=== PATIENT | female | born 1955 | race Caucasian/White ===

== ENCOUNTER 2017-03-05 11:47 | Inpatient (IN) ==
[2017-03-05] MEDS ORDERED: IOPAMIDOL 100 ML BOTTLE IJ ONE (11:48)
[2017-03-05] MEDS ORDERED: ONDANSETRON 4 MG/2 ML VIAL IV ONE (12:29)
[2017-03-05] MEDS ORDERED: 0.9 % SODIUM CHLORIDE 2,000 ML IV ONE (12:29)
[2017-03-05 13:38] LABS: Creatine Kinase 25 IU/L (24-170)
[2017-03-05 13:41] LABS: ALT/SGPT 9 U/l (0-40); Albumin 3.6 gm/dL (3.2-5.2); Albumin/Globulin Ratio 1.2 (1.0-2.3); Alkaline Phosphatase 82 U/L (39-117); Blood Urea Nitrogen 18 mg/dl (8-23); Magnesium 1.7 mg/dL (1.6-2.5); proBNP 268.7 pg/ml (0-125)
[2017-03-05] MEDS ORDERED: POTASSIUM CHLORIDE 20 MEQ in DEXTROSE 5% IN WATER 250 ML IV ONE (13:55)
--- NOTE | 2017-03-05 13:55 | Emergency Department Note ---
General Adult HPI - General Chief complaint: Weakness Stated complaint: Weakness Time Seen by Provider: 03/05/17 12:26 Source: patient, family, EMS Mode of arrival: wheelchair Limitations: no limitations - History of Present Illness HPI Narrative: 62-year-old female with a syncopal episode this morning when her tried to pick her up and help her to the bathroom. She was at her baseline confusion or slightly worse on arousal and the whole episode lasted less than a minute. She was unresponsive he tried to do some CPR, chest compressions and breaths. She gradually came around. When she passed out her eyes rolled back in her back and arms postured straight; however she did not lose control of her bowel or bladder nor did she have tremors or bite her tongue. She did stop breathing though. All that to say, it is not clear whether or not she had a seizure, passed out or actually underwent respiratory arrest Not getting much in the way of useful history and review of systems from her but her is here and gives me the story; also her primary care doctor, Dr. Mikal Meyer stop by gave me additional history. It sounds like she has been a gradual steady decline for unknown reasons over the last 6 months to year with belly pain nausea vomiting and unintentional weight loss. She is a former smoker and she has had a previous heart attack. Was scheduled for CT of the abdomen and pelvis today for above-noted reasons. No shortness of breath at this time - Related Data Home Medications Medication Instructions Recorded Confirmed Metoprolol Succinate [Toprol Xl] 100 mg PO BID 08/14/16 02/21/17 aspirin 81 mg tablet,delayed 81 mg PO QDAY 11/06/16 02/21/17 release furosemide 40 mg tablet 40 mg PO QDAY 11/06/16 02/21/17 potassium chloride ER 20 mEq 20 meq PO QDAY 11/06/16 02/21/17 tablet,extended release Previous Rx's Medication Instructions Recorded omeprazole 20 mg capsule,delayed 20 mg PO BID #180 cap 06/17/16 release Wheelchair 1 each MC CONT #1 each 08/16/16 meclizine 25 mg tablet 25 mg PO .Q HS PRN #30 tab 11/06/16 atorvastatin 80 mg tablet 80 mg PO QDAY 30 Days 12/03/16 escitalopram 10 mg tablet 10 mg PO QDAY #30 tab 02/21/17 Allergies Allergy/AdvReac Type Severity Reaction Status Date / Time Oxycodone AdvReac Vomiting Verified 03/05/17 11:53 Warfarin [From Coumadin] AdvReac nausea Verified 03/05/17 11:53 codeine sulfate Allergy Unknown Other Uncoded 02/21/17 15:24 Review of Systems All systems ED: reviewed and negative except as stated. Past Medical History - Past Medical History Attestation: Yes: The following information was validated with the patient. Medical history: Reports: coronary artery disease, hyperlipidemia, myocardial infarction, other (Barett's) Surgical history ED: Reports: , hip replacement, tonsillectomy, other ( cardiac cath, colonoscopy, left breast biopsy) - Social History smoking status: Former smoker Physical Exam Fatigued thin female no acute distress resting. Normocephalic atraumatic. Conjunctive are clear sclerae white and nonicteric. No nasal discharge or congestion. Oropharynx is pink and moist. Neck is supple without lymphadenopathy or thyromegaly. Heart is regular rate and rhythm no murmurs appreciated. Lungs are clear to auscultation bilaterally without wheezes rales rhonchi or respiratory distress. Abdomen is soft mildly distended but nontender. No pedal edema. +2 radial pulse. She is able to move her appendages without difficulty. Neurologically she is alert and oriented to place but her short-term memory seems to be lacking. She is a little confused and is unable to give me a reasonable history about what has been going on normally last few days but last few months. - General Limitations: no limitations Course Vital Signs Temperature 98.3 F 03/05/17 11:47 Pulse Rate 106 H 03/05/17 11:47 Respiratory Rate 14 03/05/17 11:47 Blood Pressure 115/85 03/05/17 11:47 Pulse Oximetry (%) 99 03/05/17 11:47 Temperature 98.3 F 03/05/17 11:47 Pulse Rate 98 H 03/05/17 14:51 Respiratory Rate 15 03/05/17 14:16 Blood Pressure 117/82 03/05/17 14:51 Pulse Oximetry (%) 100 03/05/17 14:51 Medical Decision Making - Medical Records Medical records reviewed: Yes I reviewed the patient's medical records. - Lab Data Lab results reviewed: Yes I reviewed the patient's lab results. Result diagrams: 03/05/17 12:38 03/05/17 12:38 Lab Results 03/05/17 03/05/17 03/05/17 Range/Units 12:38 12:38 12:38 WBC 8.8 (4.5-11.0) K/mcL RBC 3.68 L (4.00-5.20) M/mcL Hgb 12.2 (12.0-15.0) g/dL Hct 35.8 L (36.0-48.0) % MCV 97.3 (80.0-100.0) fL MCH 33.1 (26.0-34.0) pg MCHC 34.0 (31.0-36.0) g/dL RDW 15.4 H (11.5-14.5) % Plt Count 293 (140-440) K/mcL MPV 9.1 (7.4-10.4) fL Gran % 76.4 (38.0-78.0) % Lymph % (Auto) 12.1 L (15.5-49.0) % [place] % (Auto) 10.5 (1.0-12.0) % Eos % (Auto) 0.9 (0.0-7.0) % Baso % (Auto) 0.1 (0.0-2.0) % Gran # 6.7 (1.8-8.0) K/mcL Lymph # 1.1 L (1.5-4.8) K/mcL [place] # 0.9 (0.1-0.9) K/mcL Eos # 0.1 (0.0-0.7) K/mcL Baso # 0 (0.0-0.3) K/mcL VBG Lactic Acid 1.9 (0.5-2.2) mmol/L Sodium 143 (133-145) mmol/L Potassium 3.2 L (3.3-5.1) mmol/L Chloride 97 (96-108) mmol/L Carbon Dioxide 15 L (22-30) mmol/L Anion Gap 31.0 H (8-16) BUN 18 (8-23) mg/dl Creatinine 1.1 (0.6-1.1) mg/dl GFR Calculation 53 Glucose 87 (70-105) mg/dL Calcium 9.4 (8.6-10.4) mg/dl Magnesium 1.7 (1.6-2.5) mg/dL Total Bilirubin 0.4 (0.0-1.0) mg/dL AST 16 (0-37) U/l ALT 9 (0-40) U/l Alkaline Phosphatase 82 (39-117) U/L Ammonia (11-51) mcmol/L Total Creatine Kinase (24-170) IU/L Troponin T (0-0.03) ng/ml NT-Pro-B Natriuret Pep 268.7 H (0-125) pg/ml Total Protein 6.7 (5.9-8.4) gm/dL Albumin 3.6 (3.2-5.2) gm/dL Globulin 3.1 (2.2-3.7) gm/dL Albumin/Globulin Ratio 1.2 (1.0-2.3) 03/05/17 03/05/17 03/05/17 Range/Units 12:38 12:38 12:55 WBC (4.5-11.0) K/mcL RBC (4.00-5.20) M/mcL Hgb (12.0-15.0) g/dL Hct (36.0-48.0) % MCV (80.0-100.0) fL MCH (26.0-34.0) pg MCHC (31.0-36.0) g/dL RDW (11.5-14.5) % Plt Count (140-440) K/mcL MPV (7.4-10.4) fL Gran % (38.0-78.0) % Lymph % (Auto) (15.5-49.0) % [place] % (Auto) (1.0-12.0) % Eos % (Auto) (0.0-7.0) % Baso % (Auto) (0.0-2.0) % Gran # (1.8-8.0) K/mcL Lymph # (1.5-4.8) K/mcL [place] # (0.1-0.9) K/mcL Eos # (0.0-0.7) K/mcL Baso # (0.0-0.3) K/mcL VBG Lactic Acid (0.5-2.2) mmol/L Sodium (133-145) mmol/L Potassium (3.3-5.1) mmol/L Chloride (96-108) mmol/L Carbon Dioxide (22-30) mmol/L Anion Gap (8-16) BUN (8-23) mg/dl Creatinine (0.6-1.1) mg/dl GFR Calculation Glucose (70-105) mg/dL Calcium (8.6-10.4) mg/dl Magnesium (1.6-2.5) mg/dL Total Bilirubin (0.0-1.0) mg/dL AST (0-37) U/l ALT (0-40) U/l Alkaline Phosphatase (39-117) U/L Ammonia 24 (11-51) mcmol/L Total Creatine Kinase 25 (24-170) IU/L Troponin T < 0.01 (0-0.03) ng/ml NT-Pro-B Natriuret Pep (0-125) pg/ml Total Protein (5.9-8.4) gm/dL Albumin (3.2-5.2) gm/dL Globulin (2.2-3.7) gm/dL Albumin/Globulin Ratio (1.0-2.3) ABG shows pH 7.44 PCO2 24 PO2 102 - Radiology Data Radiology results reviewed: Yes I reviewed the patient's radiology results. Reviewed the CT scan of the head with contrast with Dr. anca Benavides the radiologist, no acute findings but general atrophy Reviewed the CT scan of the chest abdomen pelvis with Dr. Benavides as well which showed stomach distention as well as bladder distention. Appear to be a transition point at the gastric outlet signifying probable gastric outlet obstruction. Distal esophagus is also thickened 7-10 mm -correlation is recommended that she does have a history of Osuna's. - EKG Data EKG #1 EKG attestation: Yes I reviewed and interpreted this EKG. EKG results narrative: EKG shows sinus rhythm with a rate of 102 with a Q-wave in 2 3 and aVF consistent with previous heart attack. T-wave inversion V2 through V6 downsloping nonspecific. EKG was compared with 08/14/2016 which showed normal sinus rhythm Disposition Clinical Impression: Hypokalemia, Starvation ketoacidosis, Gastric outlet obstruction Syncope Qualifiers: Syncope type: unspecified Qualified Code(s): R55 - Syncope and collapse Summary: Found to have high anion gap metabolic acidosis, likely from starvation ketosis with compensated alkalosis. This is likely secondary to gastric outlet obstruction with large distended stomach seen on CT scan. Notable thickening of the distal esophagus as well with history of Osuna's. No white count or fever-sepsis or serious infection not in the differential NG tube placed in the ER as well as Fontanez catheter. Sameer cabezas for low potassium Discussed case with Dr. Delgado the hospitalist as well as Dr. Jignesh Oakes surgeon-hospitalist will admit and surgeon will consult Disposition: Xfer As Inpt ([facility]) Condition: Serious Referrals: Mikal Meyer MD [Primary Care Provider] - Jignesh Oakes MD [Physician] - Daniel Shafer MD [Physician] -
[2017-03-05 14:09] LABS: Basophils # (Auto) 0 K/mcL (0.0-0.3); Basophils % (Auto) 0.1 % (0.0-2.0); Eosinophils # (Auto) 0.1 K/mcL (0.0-0.7); Eosinophils % (Auto) 0.9 % (0.0-7.0); Granulocytes % (Auto) 76.4 % (38.0-78.0); Lymphocytes # (Auto) 1.1 K/mcL (1.5-4.8); Lymphocytes % (Auto) 12.1 % (15.5-49.0); Mean Cell Volume 97.3 fL (80.0-100.0); Mean Corpuscular Hemoglobin 33.1 pg (26.0-34.0); Monocytes # (Auto) 0.9 K/mcL (0.1-0.9); Monocytes % (Auto) 10.5 % (1.0-12.0); Platelet Count 293 K/mcL (140-440); RBC 3.68 M/mcL (4.00-5.20); Red Cell Distribution Width 15.4 % (11.5-14.5)
--- NOTE | 2017-03-05 15:11 | Cat Scan Report ---
History: New Onset seizures Findings: The brain was imaged with contrast at 2.5 mm intervals. There is no evidence of a mass or enhancing lesion within the brain. No cerebral edema or infarct are present. There is underlying mild atrophy involving the frontal and temporal lobes. The ventricles are normal in size. The visualized sinuses are clear. Impression: Mild cerebral atrophy. The exam is otherwise normal without evidence of malignancy or other acute abnormality. Interpreted and Authenticated by: Trenton Benavides 03/05/17
--- NOTE | 2017-03-05 15:24 | Cat Scan Report ---
History: Former smoker with unexplained weight loss, seizures, confusion and abdominal distention Findings: The patient was imaged following intravenous contrast scanning from the thoracic inlet to the symphysis pubis. Sagittal and coronal reformats were created along with axial MIPS images of the chest. The patient was unable to drink barium due to nausea. Chest: The lungs are clear and well expanded. There is no pulmonary mass, pneumonia or emphysema. The thyroid is normal in size and homogeneous. No pleural effusion is present. Mediastinum and hilar normal without evidence of adenopathy the pulmonary arteries are normal with no pulmonary emboli. The circumflex or thickening of the wall of the distal thoracic esophagus. It measures up to 6 mm. This extends down to but not below the gastroesophageal junction. There is some air and fluid in the mid and proximal thoracic esophagus. Scattered calcified plaques are present in the aorta and coronary arteries. The heart is normal in size and contour. Abdomen and pelvis: Adjacent to the falciform ligament there is a triangular-shaped low-attenuation band of tissue which measures 1.5 x 2.7 cm. This has no mass effect and is probably focal fatty infiltration. There is a 1 cm cyst in the lateral segment left lobe. The right lobe is normal. The gallbladder is normal with no thickening of the wall or stones. The bile ducts are nondilated. The spleen is normal in size and homogeneous. There is no evidence of pancreatic mass or pancreatitis. The adrenals and kidneys are normal. The stomach is abnormally distended. The duodenal bulb is fluid-filled but not dilated. There is no apparent mass or inflammation at the pylorus. Second portion the duodenum is collapsed. The jejunum and ileum containing fluid and are nondistended. There is gas and stool in nondistended colon. Multiple noninflamed diverticula are present in the descending and sigmoid colon. A mobile cecum is located along the anterior superior border of the bladder. A lipoma is present at the ileocecal valve. Terminal ileum is normal. The uterus is anteverted and contains a densely calcified fibroid. No abnormality seen in the adnexa. The patient has no ascites. Mild ectasia is present in the distal abdominal aorta. There are wedge compression fractures involving the superior endplates of T12 and L1. These appear old. There is severe disc space narrowing at L2-3 and L3-4. There is also sclerosis in the left ilium adjacent to the SI joint due to chronic sacroiliitis. Is also mild left-sided osteitis symphysis pubis with bone sclerosis. Impression:. Thickened wall of the distal thoracic esophagus. This could be due to esophagitis or esophageal carcinoma. Abnormally distended stomach, without evidence of a mass or obvious ulcer at the pylorus. Results were discussed with Dr. Valdez. Interpreted and Authenticated by: Trenton Benavides 03/05/17
[2017-03-05 16:09] LABS: Amphetamine Screen,Urine NONE DETECTED (NONDETECTED); Benzodiazepines Screen,Urine NONE DETECTED (NONDETECTED); Cocaine Screen,Urine NONE DETECTED (NONDETECTED); Opiate Screen,Urine NONE DETECTED (NONDETECTED); Oxycodone, Urine Screen NONE DETECTED (NONDETECTED)
[2017-03-05] MEDS ORDERED: PANTOPRAZOLE 40 MG VIAL IV ONE (16:51)
[2017-03-05] MEDS ORDERED: POTASSIUM CHLORIDE 40 MEQ in DEXTROSE 5% IN WATER 500 ML IV PRN (17:09)
[2017-03-05] MEDS ORDERED: MAGNESIUM SULFATE 2 GM/50 ML BAG IV PRN (17:09)
[2017-03-05] MEDS ORDERED: ACETAMINOPHEN 650 MG SUPP.RECT PR PRN (17:09)
[2017-03-05] MEDS ORDERED: ACETAMINOPHEN 1,000 MG/100 ML BOTTLE IV PRN (17:09)
[2017-03-05] MEDS ORDERED: ONDANSETRON 4 MG/2 ML VIAL IV PRN (17:09)
[2017-03-05] MEDS ORDERED: guaiFENesin/CODEINE 10 ML UDC PO PRN (17:09)
[2017-03-05] MEDS ORDERED: CYANOCOBALAMIN 1,000 MCG/ML VIAL IM ONE (17:30)
[2017-03-05] MEDS: LACTATED RINGERS 1,000 ML IV SCH (17:30)
[2017-03-05] MEDS ORDERED: POTASSIUM CHLORIDE 20 MEQ, MAGNESIUM SULFATE 16.24 MEQ, THIAMINE 100 MG, MVI, ADULT NO.... IV SCH (17:30)
--- NOTE | 2017-03-05 18:00 | History and Physical Report ---
DATE OF ADMISSION: 03/05/2017 DATE OF ADMISSION: 03/05/2017 REASON FOR ADMISSION: Weight loss, nausea, near syncopal episode, weakness. HISTORY OF CHIEF COMPLAINT: The patient is a 62-year-old with known history of coronary artery disease and severe reflux esophagitis and Osuna's esophagus. The patient's symptoms have been progressing over the last 4 months with increasing dysphagia, loss of appetite along with weakness. The patient has in the process lost 29 pounds. Over the last 1 month, her dysphagia has progressed to the point she is barely able to eat or drink. She was evaluated by primary care physician and was started on PPI and subsequently a CT scan was ordered for further evaluation. However, today, patient had a near syncopal episode, prompting her to bring her to the hospital. Initial workup in the ER was significant for severe anion gap acidosis of 31 along with hypokalemia and cachexia with over [address] scan revealed esophageal growth, possible malignancy, and distended stomach. Surgery was consulted for evaluation. Hospitalist Service was requested for admission. At the time of examination, the patient is accompanied with her Jose Juan and her sisters. They were able to provide most of the history. The patient was initially confused, but after crystalloids, she is able to provide answers to review of systems but could not provide a detailed history. She denies chest pain, headache. She denies change in stool caliber, dysuria, fever, or glandular swelling. She further denies joint swelling, rash, but endorses to significant weakness, confusion and feeling fatigued to the point the patient could not function and would require assistance for even activities of daily living, including bathing and getting out of bed. The patient has been using significant alcohol, but has been cutting down. She denies substance abuse. REVIEW OF SYSTEMS: Ten-point review of system was performed and negative except the ones discussed above. PAST MEDICAL HISTORY: 1. History of coronary artery disease. 2. Hypertension. 3. GERD and Osuna's esophagus. 4. Hyperlipidemia. 5. Anxiety disorder. CURRENT MEDICATIONS: Meclizine 25. Atorvastatin 80. Escitalopram 10. Omeprazole 20. Furosemide 40. Aspirin 81. Metoprolol 100 mg twice daily. ALLERGIES: 1. MORPHINE. 2. CODEINE. FAMILY HISTORY: Significant for mother with abdominal cancer with peritoneal carcinomatosis. Father with lung cancer. Grandmother uterine cancer. SOCIAL HISTORY: The patient is to her Jose Juan, lives in [place]. Significant alcohol use but cutting down recently. Quit smoking 10 years ago and currently on E-cigarettes. She is a FULL CODE STATUS. Her can be reached at [phone] his cell or home number [phone]. PAST SURGICAL HISTORY: 1. . 2. Hip replacement. 3. Tonsillectomy. 4. Cardiac catheterization. 5. Colonoscopy. 6. Left breast biopsy. PHYSICAL EXAMINATION: GENERAL: The patient is fairly cachectic. BMI 17. Height 5 feet 5 inches. VITAL SIGNS: Blood pressure 125/86, respiration rate 17, temperature 98.6, pulse 84, sats 100 percent on room air. HEENT: Pupils symmetric. Oral cavity is dry. No ear or nose discharge. Head is normocephalic and atraumatic. NECK: No lymphadenopathy, temporal wasting. CHEST: S1, S2 regular rhythm, tachycardia. ESM grade 1. Diminished breath sounds at bases, but symmetrical breath sounds. ABDOMEN: Distended, especially in the epigastric area, but nontender to deep palpation. LOWER EXTREMITIES: No cyanosis or clubbing. No joint swelling. Significant muscle wasting, but no lymphedema or cyanosis. SKIN: Otherwise, no suspicious lesions except for pallor. PSYCH: The patient is confused but able to answer to questions. She is oriented to place and person but not time. NEURO: Higher functions could not be checked. Moving all four extremities. LABS AND IMAGING: White count 8.8, hemoglobin 12.2, platelets 293. Lactic acid 1.9. Sodium 142, potassium 3.2, creatinine 1.1, BUN 18, anion gap 31, bicarbonate 15. Troponin negative. TSH 3.77. LFTs unremarkable. Urine tox negative. CT abdomen: Thickened wall of the distal thoracic esophagus, could be esophagitis or esophageal carcinoma, distended stomach. CT head: Mild atrophy, otherwise unremarkable. ASSESSMENT AND PLAN: A 62-year-old admitted with significant weight loss, cachexia and esophageal thickening, possibly tumor with bowel obstruction. 1. Bowel obstruction. Surgery consulted. Nasogastric decompression, nothing by mouth, crystalloids. 2. Severe anion gap acidosis, likely secondary to starvation ketosis. Continue crystalloids. 3. Protein calorie malnutrition. Start banana bag, multivitamin supplements, and post-endoscopy high protein calorie supplements if amenable to oral feeds. 4. History of alcoholism. High risk for withdrawal. Continue close monitoring. 5. Other prior medical issues: History of coronary artery disease. Will restart metoprolol and statin in 24 hours post upper endoscopy. History of gastroesophageal reflux disease. Continue IV proton pump inhibitor. PLAN FOR TODAY: 1. Admit as inpatient. 2. Surgery consult. 3. Crystalloids. 4. Nutrition consult. Further recommendations as per surgery based on EGD and biopsies. AA:sandro Job ID: [id number] Doc ID: [id number] Daniel Shafer MD [facility]ITALAddy
--- NOTE | 2017-03-05 18:19 | XRay Report ---
HISTORY: Reason for Exam:NG PLACEMENT FINDINGS: There is nasogastric tube within the body of the stomach. The tip lies adjacent to the greater curvature. The stomach remains abnormally dilated. There is contrast within nondilated renal collecting systems from the preceding abdomen CT. IMPRESSION: Stomach remains distended in spite of satisfactory placement of a nasogastric tube Interpreted and Authenticated by: Trenton Benavides 03/05/17
[2017-03-05] MEDS ORDERED: TPN PER PHARMACY IV ONE (18:59)
--- NOTE | 2017-03-05 19:21 | General Surgery Consult Note ---
History of Present Illness Patient information: Note initiated : 03/05/17 at 7:13 pm Service Date, if different from initiated Date: [] Patient: Jannie Weston 62 y/o F admitted on 03/05/17 for Weakness. Chief Complaint: [] Requesting physician: Daniel Shafer History of present illness: 62-year-old female who was admitted through the emergency room for a syncopal episode this morning. The only history obtained is from the who describes a respiratory arrest. There is no available history to suggest that she had a seizure. No other history is available. The patient has had gradual weight loss starting in July 2015. She has been followed by Dr. Meyer for this and was in the middle of evaluation. She has had weight loss from 134 pounds to 101 pounds. She has also had anorexia abdominal pain and vomiting. She gives a history of early satiety. On evaluation in the emergency room it was noted that she had major dilation of her stomach and duodenal bulb without evidence of mass. Nasogastric tube has been inserted and she does not have any bilious material from her stomach. This suggests that she has obstruction of the second portion of the duodenum which may actually be due to SMA syndrome. This would also explain the paucity of gas in her distal bowel. She has CT evidence of thickening of the distal esophageal junction with some liquid in her esophagus. This does not suggest esophageal neoplasia though she does have a history of Osuna's esophagus. I cannot get any history from the patient tonight however I will make plans for upper endoscopy on Friday. In the meantime the patient will be started on TPN Review of Systems All systems PM: reviewed and no additional remarkable complaints except as stated - Gastrointestinal abdominal pain, bloating, early satiety, nausea, vomiting - Musculoskeletal abnormal gait, muscle weakness - Integumentary no changing lesions, no pruritus, no rash - Neurological abnormal speech, behavioral changes, confusion, lack of coordination, tremor(s) - Psychiatric change in appetite, memory loss - Hematologic/Lymphatic no easy bleeding, no easy bruising, no lymphadenopathy - Allergic/Immunologic no tongue swelling, no throat swelling, no uticaria, no wheezing, no lip swelling Past History Past medical history: History of melanoma left hip GERD with Osuna's esophagus History of colon polyps Coronary artery disease status post MD History of DVT right leg 2014 Past surgical history: Left breast biopsy Tonsillectomy OTIF right femur fracture Past family history: Coronary artery disease Diabetes mellitus Hypertension Stroke Past social history: Former smoker Positive alcohol use Medications and Allergies Home Medications Medication Instructions Recorded Confirmed Type omeprazole 20 mg capsule,delayed 20 mg PO BID #180 cap 06/17/16 02/21/17 Rx release Metoprolol Succinate [Toprol Xl] 100 mg PO BID 08/14/16 02/21/17 History Wheelchair 1 each MC CONT #1 each 08/16/16 02/21/17 Rx aspirin 81 mg tablet,delayed 81 mg PO QDAY 11/06/16 02/21/17 History release furosemide 40 mg tablet 40 mg PO QDAY 11/06/16 02/21/17 History meclizine 25 mg tablet 25 mg PO .Q HS PRN #30 tab 11/06/16 02/21/17 Rx potassium chloride ER 20 mEq 20 meq PO QDAY 11/06/16 02/21/17 History tablet,extended release atorvastatin 80 mg tablet 80 mg PO QDAY 30 Days 12/03/16 02/21/17 Rx escitalopram 10 mg tablet 10 mg PO QDAY #30 tab 02/21/17 02/21/17 Rx Allergies Allergy/AdvReac Type Severity Reaction Status Date / Time codeine AdvReac Mild Headache Verified 03/05/17 17:28 Oxycodone AdvReac Mild Vomiting Verified 03/05/17 17:28 Warfarin [From Coumadin] AdvReac Mild nausea Verified 03/05/17 17:28 Exam Temp Pulse Resp BP Pulse Ox 97.0 F 88 16 126/66 100 03/05/17 16:20 03/05/17 16:20 03/05/17 16:20 03/05/17 16:20 03/05/17 16:20 - General physical appearance no distress, no pain, cachectic, chronically ill - Eyes PERRL, normal ocular movement - ENT normal pinna, normal nares, normal mucosa, no hearing loss, no congestion - Head Head exam IM: Present: atraumatic, normocephalic - Neck no masses, no bruits, trachea midline, no lymphadectomy, no venous distension - Cardiovascular Cardiovascular exam IM: Present: normal rate and rhythm, RRR, +S1, +S2. Absent : JVD - Respiratory normal expansion, normal respiratory effort, clear to percussion, clear to auscultation - Abdomen Abdomen: Present: soft, non tender, bowel sounds, distended (Nondistended without palpable mass and with good active bowel sounds) Hernia: Present: none - Integumentary Present: no rash, no growths, no abnormal pigmentation, other (Poor skin turgor) - Neurologic Present: normal sensation, disoriented, confused, memory loss, other (Some dystonic movement of extremities intermittently and some dystonic movement of face) - Musculoskeletal Present: other ( gait and stance not tested) - Psychiatric Present: oriented to person, other (Oriented only to person; speech is not coordinated and memory is poor) Results - Labs 03/05/17 12:38 03/05/17 12:38 All other labs normal. Assessment and Plan (1) SMAS (superior mesenteric artery syndrome) We will schedule for EGD on Friday Continue nasogastric suction PICC line placement for TPN Status: Acute (2) Hypokalemia Status: Acute (3) Starvation ketoacidosis Status: Acute (4) Gastric outlet obstruction Status: Acute (5) Coronary artery disease Status: Chronic (6) Barretts esophagus Status: Chronic
[2017-03-05] MEDS ORDERED: POTASSIUM CHLORIDE 20 MEQ/10 ML VIAL IV ONE (20:02)
[2017-03-05] MEDS ORDERED: traZODone HCL 50 MG TABLET PO PRN (21:00)
[2017-03-05] MEDS: HEPARIN 5,000 UNIT/ML VIAL SQ SCH (21:02)
[2017-03-05] MEDS: 0.9 % SODIUM CHLORIDE 10 ML SYRINGE IV SCH (21:04)
[2017-03-06] MEDS: 0.9 % SODIUM CHLORIDE 10 ML SYRINGE IV SCH ×4 (05:03→21:25)
[2017-03-06] MEDS: LACTATED RINGERS 1,000 ML IV SCH (05:03)
[2017-03-06 05:56] LABS: Mean Cell Volume 98.3 fL (80.0-100.0); Mean Corpuscular HGB Conc 33.4 g/dL (31.0-36.0); Mean Corpuscular Hemoglobin 32.8 pg (26.0-34.0); Platelet Count 244 K/mcL (140-440); RBC 2.85 M/mcL (4.00-5.20); Red Cell Distribution Width 15.6 % (11.5-14.5)
[2017-03-06 06:22] LABS: ALT/SGPT 6 U/l (0-40); Albumin 2.9 gm/dL (3.2-5.2); Albumin/Globulin Ratio 1.3 (1.0-2.3); Alkaline Phosphatase 60 U/L (39-117); Bilirubin,Direct < 0.2 mg/dL (0.0-0.3); Blood Urea Nitrogen 12 mg/dl (8-23); Gamma Glutamyl Transpeptidase 26 U/L (5-36); Magnesium 2.6 mg/dL (1.6-2.5); Uric Acid 7.4 mg/dL (2.5-8.0)
[2017-03-06 06:36] LABS: Anisocytosis 1+ (NONE SEEN); Band Neutrophils % 3 % (0-10); Eosinophils % (Manual) 2 % (0-7); Lymphocytes % 17 % (15-49); Monocytes % (Manual) 10 % (1-12); Platelet Estimate NORMAL (NORMAL); RBC Morphology ABNORM (NORMAL); Segmented Neutrophils % 68 % (38-78)
[2017-03-06] MEDS ORDERED: DEXTROSE 50% 50 ML SYRINGE IV ONE (07:19)
[2017-03-06] MEDS ORDERED: DEXTROSE 50% 50 ML VIAL IV ONE (07:30)
[2017-03-06] MEDS ORDERED: DEXTROSE 5%-LR 1,000 ML IV SCH (07:30)
--- NOTE | 2017-03-06 08:34 | XRay Report ---
HISTORY: Reason for Exam:to evaluate gastric distention in a.m, FINDINGS: The stomach is partially decompressed and chest today and is now normal in size and contour. Nasogastric tube is in the body the stomach point towards the antrum. There is normal amount of air in the large and small intestine. Lung bases are clear. IMPRESSION: Resolution of the previously distended stomach Interpreted and Authenticated by: Trenton Benavides 03/06/17
--- NOTE | 2017-03-06 09:29 | Internal Med Progress Note ---
Medical - PN: Subj Patient information: Note initiated : 03/06/17 at 9:26 am Service Date, if different from initiated Date: [] Patient: Jannie Weston 62 y/o F admitted on 03/05/17 for Weakness. Chief Complaint: [] Interval history: 03/05- atient admitted with severe cachexia bowel obstruction. Esophageal mass on CT. EGD scheduled. Surgery consulted.NG tube placed. Patient nothing by mouth. Place PICC line and start TPN. Severe volume depletion and Acidosis secondary to starvation ketosis. 03/06- no overnight events. NG tube no significant output. Improving and anion gap from -17. hemoglobin 9.4. EGD in 24 hours. PICC line being placed. Start TPN. no family at bedside. No fever chills nausea vomiting. - Constitutional Vitals: Vital Signs Temp Pulse Resp BP Pulse Ox 97.9 F 83 16 92/67 99 03/06/17 07:00 03/05/17 20:00 03/06/17 07:00 03/06/17 07:00 03/06/17 07:00 Period Temp Pulse Resp BP Sys/Cuadra Pulse Ox Last 24 Hr 97.0 F-97.9 F 83 16-18 83-95/65-74 82-100 Intake and Output 03/05/17 03/06/17 03/06/17 21:59 05:59 13:59 Intake Total 260 / 2260 2024.2 / 2024.2 312 / 312 Output Total 250 / 250 300 / 300 Balance 260 / 2260 1775.2 / 177.2 Weight 102 lb 3.2 oz Intake & Output: Intake & Output 03/05/17 03/06/17 03/06/17 21:59 05:59 13:59 Intake Total 260 / 2260 5.2 / 2024.2 312 / 312 Output Total 250 / 250 300 / 300 Balance 260 / 2260 1775.2 / 1775.2 12 Weight 102 lb 3.2 oz Intake: IV 260 / 260 2024.2 / 2024.2 262 / 262 Lactated Ringers 1,000 ml 1000 / 1000 262 / 262 @ 100 mls/hr IV .Q10H [facility] Rx#:[id number] Oral 0 / 0 IV - Manual Only 50 / 50 Output: Gastric Drainage 300 / 300 Right Nare 300 / 300 Urine Catheter Amount 250 / 250 General appearance: cooperative, no acute distress Exam: cachectic Mentation much improved Nonlabored breathing Foleys draining clear urine minimal NG output Epigastric distention Medical - PN: Obj Da - Labs CBC & Chem 7: 03/06/17 03:50 03/06/17 03:50 Labs: Abnormal Lab Results 03/06/17 03/06/17 03:50 03:50 RBC 2.85 L Hgb 9.4 L Hct 28.0 L RDW 15.6 H RBC Morphology Abnorm A Poikilocytosis Few A Anisocytosis 1+ A Chloride 110 H Carbon Dioxide 16 L Anion Gap 17.0 H Glucose 65 L Calcium 8.2 L Phosphorus 2.3 L Magnesium 2.6 H Total Protein 5.1 L Albumin 2.9 L Meds: Medications Acetaminophen (Tylenol) 650 mg NE Q4-6HP PRN PRN Reason: PAIN/FEVER > 101 Guaifenesin/Codeine Phosphate (Robitussin Ac) 10 ml PO Q4HP PRN PRN Reason: Cough Heparin Sodium (Porcine) (Heparin) 5,000 unit SQ Q12 [facility] Last Admin: 03/05/17 21:02 Dose: 5,000 unit Heparin Sodium (Porcine) (Heparin Flush) 2 ml IV Q12 [facility] Potassium Chloride 40 meq/ (Dextrose) 520 mls @ 130 mls/hr IV UD PRN PRN Reason: K+ = or < 3.5 Last Admin: 03/06/17 07:40 Dose: 130 mls/hr Magnesium Sulfate (Magnesium Sulfate) 2 gm in 50 mls @ 50 mls/hr IV UD PRN PRN Reason: MG = or < 1.7 Acetaminophen (Ofirmev) 1,000 mg in 100 mls @ 200 mls/hr IV Q6HP PRN PRN Reason: PAIN/FEVER > 101 Thiamine HCl 100 mg/ Sodium (Chloride) 51 mls @ 50 mls/hr IV DAILY [facility] Stop: 03/08/17 10:02 Dextrose/Lactated Ringer's (Dextrose 5%-Lactated Ringers) 1,000 mls @ 100 mls/ hr IV .Q10H [facility] Ondansetron HCl (Zofran) 4 mg IV Q4-6HP PRN PRN Reason: Nausea And Vomiting Pantoprazole Sodium (Protonix) 40 mg IV BIDAC [facility] Sodium Chloride (Saline Flush) 10 ml IV Q8 [facility] Last Admin: 03/06/17 07:27 Dose: 10 ml Sodium Chloride (Saline Flush) 10 ml IV UD PRN PRN Reason: FLUSH Trazodone HCl (Desyrel) 50 mg PO HSP PRN PRN Reason: Insomnia Medical - PN: A/P - Time Spent With Patient Total time spent is greater than 50% in coordination of care (as documented) at patient's floor/unit and/or counseling patient: 25 - 35 minutes (1) Gastric outlet obstruction Status: Acute Assessment and plan: * bowel obstruction secondary to likely esophageal mass. On NG tube decompression. EGD in 24 hours. Surgery consulted * Severe protein calorie malnutrition with cachexia-start TPN * Anion gap acidosis secondary to starvation ketosis-Improving. Down from 31-17 * FANNY improved-creatinine down from 1.1 ->.8 * History of Osuna's esophagus/GERD-ontinue IV PPI * history of coronary artery disease restart metoprolol/statin/aspirin * full code Plan * bowel obstruction management per surgery * Dietary consult * TPN Current Visit: Yes Medical - PN: Qual - VTE Deep Vein Thrombosis/Pulmonary Embolism Present on Admission: No
[2017-03-06] MEDS: HEPARIN 5,000 UNIT/ML VIAL SQ SCH ×2 (09:35→21:24)
[2017-03-06] MEDS: PANTOPRAZOLE 40 MG VIAL IV SCH ×2 (09:35→17:59)
[2017-03-06] MEDS: THIAMINE 100 MG in 0.9 % SODIUM CHLORIDE 50 ML IV SCH (09:35)
--- NOTE | 2017-03-06 09:45 | XRay Report ---
HISTORY: Reason for Exam:PICC PLACEMENT FINDINGS: The PICC line has been placed in the right arm with the tip in the superior vena cava. There is no pneumothorax, pleural effusion or widening of the mediastinum. The lungs are clear and well expanded. There is a nasogastric tube passing through the esophagus into the stomach. IMPRESSION: Well-positioned PICC line and no acute abnormality is present. ICU nurse was called with results Interpreted and Authenticated by: Trenton Benavides 03/06/17
[2017-03-06] MEDS ORDERED: TPN PER PHARMACY IV SCH (11:45)
[2017-03-06] MEDS ORDERED: [UNRECOGNIZED DRUG - REMARK] IV SCH (12:00)
[2017-03-06] MEDS: DEXTROSE 5%-LR 1,000 ML IV SCH (12:28)
[2017-03-06] MEDS: 0.9 % SODIUM CHLORIDE 10 ML SYRINGE IV PRN (12:30)
--- NOTE | 2017-03-06 12:44 | General Surgery Progress Note ---
Subjective Patient reports: feels better, flatus, no bowel movement, afebrile Narrative: Note initiated : 03/06/17 at 12:42 pm Service Date, if different from initiated Date: [] Patient: Jannie Weston 62 y/o F admitted on 03/05/17 for Weakness/Bowel Obstruction. Chief Complaint: [Patient is doing much better. She is mentally much more alert and aware. She is talkative and her speech is appropriate. She answers questions appropriately. She does not complain of discomfort. Her nasogastric tube still has not put out any bilious material. Her abdominal x-ray shows a persistently dilated stomach but there is more contrast contrast and gas in her distal bowel. This suggests that her gastric outlet problems are improved however the decision will be made at the time of endoscopy tomorrow.] Objective Temp Pulse Resp BP Pulse Ox 97.9 F 83 16 89/69 100 03/06/17 07:00 03/05/17 20:00 03/06/17 08:00 03/06/17 10:00 03/06/17 10:00 - Additional Data Intake & Output - Last 24 hours: Intake & Output 03/04/17 03/05/17 03/06/17 03/07/17 05:59 05:59 05:59 05:59 Intake Total 2285.2 / 4285.2 883 / 883 Output Total 250 / 250 300 / 300 Balance 2035.2 / 4035.2 583 / 583 Weight 102 lb 3.2 oz 102 lb 3.2 oz - General physical appearance no distress, no pain, cachectic, chronically ill - Eyes PERRL - ENT no congestion - Neck no masses, no venous distension - Respiratory normal expansion, normal respiratory effort, clear to auscultation - Cardiovascular Cardiovascular exam: Present: normal rate and rhythm, RRR, +S1, +S2. Absent: JVD - Abdomen soft, non tender, bowel sounds (Abdomen is nondistended and soft. She has good active bowel sounds. There is no tenderness or mass) - Neurologic normal coordination, normal sensation, other (The dystonic movements that she had on yesterday have resolved) - Musculoskeletal other ( gait and stance have not been tested) - Psychiatric oriented to time, oriented to person, oriented to place, speech is normal - Labs 03/06/17 03:50 03/06/17 03:50 Diabetes panel 03/06/17 Range/Units 03:50 Sodium 143 (133-145) mmol/L Potassium 3.4 (3.3-5.1) mmol/L Chloride 110 H (96-108) mmol/L Carbon Dioxide 16 L (22-30) mmol/L BUN 12 (8-23) mg/dl Creatinine 0.8 (0.6-1.1) mg/dl Glucose 65 L (70-105) mg/dL Calcium 8.2 L (8.6-10.4) mg/dl AST 12 (0-37) U/l ALT 6 (0-40) U/l Alkaline Phosphatase 60 (39-117) U/L Total Protein 5.1 L (5.9-8.4) gm/dL Albumin 2.9 L (3.2-5.2) gm/dL Triglycerides 147 (<150) mg/dl Calcium panel 03/06/17 Range/Units 03:50 Calcium 8.2 L (8.6-10.4) mg/dl Phosphorus 2.3 L (2.7-4.5) mg/dL Albumin 2.9 L (3.2-5.2) gm/dL Pituitary panel 03/06/17 Range/Units 03:50 Sodium 143 (133-145) mmol/L Potassium 3.4 (3.3-5.1) mmol/L Chloride 110 H (96-108) mmol/L Carbon Dioxide 16 L (22-30) mmol/L BUN 12 (8-23) mg/dl Creatinine 0.8 (0.6-1.1) mg/dl Glucose 65 L (70-105) mg/dL Calcium 8.2 L (8.6-10.4) mg/dl Adrenal panel 03/06/17 Range/Units 03:50 Sodium 143 (133-145) mmol/L Potassium 3.4 (3.3-5.1) mmol/L Chloride 110 H (96-108) mmol/L Carbon Dioxide 16 L (22-30) mmol/L BUN 12 (8-23) mg/dl Creatinine 0.8 (0.6-1.1) mg/dl Glucose 65 L (70-105) mg/dL Calcium 8.2 L (8.6-10.4) mg/dl Total Bilirubin 0.3 (0.0-1.0) mg/dL AST 12 (0-37) U/l ALT 6 (0-40) U/l Alkaline Phosphatase 60 (39-117) U/L Total Protein 5.1 L (5.9-8.4) gm/dL Albumin 2.9 L (3.2-5.2) gm/dL Assessment and Plan (1) SMAS (superior mesenteric artery syndrome) Status: Acute Assessment and plan: Patient is clinically improved which suggests that her obstruction is transient and possibly positional. This favors SMA syndrome. Current Visit: Yes (2) Hypokalemia Status: Acute Assessment and plan: Improved with electrolyte replacement Current Visit: Yes (3) Starvation ketoacidosis Status: Acute Current Visit: Yes (4) Gastric outlet obstruction Status: Acute Current Visit: Yes (5) Coronary artery disease Status: Chronic Current Visit: No (6) Barretts esophagus Status: Chronic Assessment and plan: Scheduled for upper endoscopy with biopsies in the morning Current Visit: No - Time Spent With Patient Total time spent is greater than 50% in coordination of care (as documented) at patient's floor/unit and/or counseling patient:
[2017-03-06] MEDS ORDERED: FAT EMULSION 20% 250 ML in PREMIX 1 BAG IV SCH (16:00)
[2017-03-06] MEDS: POTASSIUM CHLORIDE 20 MEQ, MAGNESIUM SULFATE 16.24 MEQ, THIAMINE 100 MG, MVI, ADULT NO.... IV SCH ×2 (19:19→20:56)
[2017-03-06] MEDS ORDERED: BENZOCAINE/MENTHOL 1 LOZENGE PO PRN (20:56)
[2017-03-06] MEDS ORDERED: BENZOCAINE/MENTHOL 1 LOZENGE PO ONE (21:22)
[2017-03-07] MEDS: DEXTROSE 5%-LR 1,000 ML IV SCH ×2 (01:04→19:12)
[2017-03-07 05:12] LABS: Mean Cell Volume 97.3 fL (80.0-100.0); Mean Corpuscular HGB Conc 33.9 g/dL (31.0-36.0); Platelet Count 208 K/mcL (140-440); RBC 2.76 M/mcL (4.00-5.20); Red Cell Distribution Width 15.8 % (11.5-14.5)
[2017-03-07] MEDS: 0.9 % SODIUM CHLORIDE 10 ML SYRINGE IV SCH ×5 (05:23→22:49)
[2017-03-07] MEDS ORDERED: BENZOCAINE/MENTHOL 1 LOZENGE PO ONE (05:25)
[2017-03-07 05:50] LABS: ALT/SGPT 6 U/l (0-40); Albumin 2.6 gm/dL (3.2-5.2); Albumin/Globulin Ratio 1.3 (1.0-2.3); Alkaline Phosphatase 56 U/L (39-117); Bilirubin,Direct < 0.2 mg/dL (0.0-0.3); Blood Urea Nitrogen 6 mg/dl (8-23); Gamma Glutamyl Transpeptidase 25 U/L (5-36); Magnesium 1.7 mg/dL (1.6-2.5); Uric Acid 5.3 mg/dL (2.5-8.0)
[2017-03-07] MEDS ORDERED: POTASSIUM CHLORIDE 20 MEQ/10 ML VIAL IV ONE (06:01)
[2017-03-07 06:13] LABS: Anisocytosis 1+ (NONE SEEN); Band Neutrophils % 1 % (0-10); Eosinophils % (Manual) 3 % (0-7); Lymphocytes % 31 % (15-49); Monocytes % (Manual) 8 % (1-12); Ovalocytes FEW (NONE SEEN); Platelet Estimate NORMAL (NORMAL); RBC Morphology ABNORM (NORMAL); Segmented Neutrophils % 57 % (38-78)
[2017-03-07] MEDS: PANTOPRAZOLE 40 MG VIAL IV SCH ×3 (07:53→17:45)
[2017-03-07] MEDS: ASPIRIN 81 MG TAB.CHEW PO SCH (09:00)
[2017-03-07] MEDS ORDERED: METOPROLOL SUCCINATE 50 MG TAB.XL.24H PO SCH ×2 (09:00→21:00)
[2017-03-07] MEDS: ATORVASTATIN 20 MG TABLET PO SCH (09:00)
--- NOTE | 2017-03-07 09:23 | Internal Med Progress Note ---
Medical - PN: Subj Patient information: Note initiated : 03/07/17 at 9:20 am Service Date, if different from initiated Date: [] Patient: Jannie Weston 62 y/o F admitted on 03/05/17 for Weakness/Bowel Obstruction. Chief Complaint: [] Interval history: 03/05- atient admitted with severe cachexia bowel obstruction. Esophageal mass on CT. EGD scheduled. Surgery consulted.NG tube placed. Patient nothing by mouth. Place PICC line and start TPN. Severe volume depletion and Acidosis secondary to starvation ketosis. 03/06- no overnight events. NG tube no significant output. Improving and anion gap from 31-17. hemoglobin 9.4. EGD in 24 hours. PICC line being placed. Start TPN. no family at bedside. No fever chills nausea vomiting. 03/07- patient lethargic and somnolent. No overnight events. Hemoglobin down to 9.1. Potassium 2.8 phosphorus 1.5. Start aggressive IV replacement. Continue TPN. EGD today. Family at bedside. No fever chills nausea vomiting. Minimal NG output - Constitutional Vitals: Vital Signs Temp Pulse Resp BP Pulse Ox 98.6 F 77 16 93/69 96 03/07/17 04:00 03/06/17 19:15 03/07/17 04:00 03/07/17 04:05 03/07/17 04:00 Period Temp Pulse Resp BP Sys/Cuadra Pulse Ox Last 24 Hr 97.6 F-99.5 F 77 16-16 70-109/54-80 96-100 Intake and Output 03/06/17 03/07/17 03/07/17 21:59 05:59 13:59 Intake Total 1194 / 1194 Output Total 525 / 525 600 / 600 Balance -525 / -525 594 / 594 Intake & Output: Intake & Output 03/06/17 03/07/17 03/07/17 21:59 05:59 13:59 Intake Total 1194 / 1194 Output Total 525 / 525 600 / 600 Balance -525 / -525 594 / 594 Intake: IV 1194 / 1194 Dextrose 5%-Lactated 944 / 944 Ringers 1,000 ml @ 75 mls /hr IV .[id number] [facility] Rx#: [id number] Intralipid 20% 250 ml In 250 / 250 Premix 1 Bag @ 25 mls/hr IV Q24H [facility] Rx#:[id number] Output: Gastric Drainage 150 / 150 200 / 200 Right Nare 150 / 150 200 / 200 Urine Catheter Amount 375 / 375 400 / 400 Exam: resting comfortably nondistressed NG tube in place Medical - PN: Obj Da - Labs CBC & Chem 7: 03/07/17 03:50 03/07/17 03:50 Labs: Abnormal Lab Results 03/07/17 03/07/17 03/06/17 03:50 03:50 13:50 RBC 2.76 L Hgb 9.1 L Hct 26.9 L RDW 15.8 H RBC Morphology Abnorm A Poikilocytosis Anisocytosis 1+ A Ovalocytes Few A ESR 35 H Potassium 2.8 L* Chloride 110 H Carbon Dioxide Anion Gap 7.0 L BUN 6 L Glucose 125 H Calcium 8.4 L Phosphorus 1.5 L Magnesium Total Protein 4.6 L Albumin 2.6 L Globulin 2.0 L Prealbumin Triglycerides 180 H 03/06/17 03/06/17 03/06/17 12:21 03:50 03:50 RBC 2.85 L Hgb 9.4 L Hct 28.0 L RDW 15.6 H RBC Morphology Abnorm A Poikilocytosis Few A Anisocytosis 1+ A Ovalocytes ESR Potassium Chloride 110 H Carbon Dioxide 16 L Anion Gap 17.0 H BUN Glucose 65 L Calcium 8.2 L Phosphorus 2.3 L Magnesium 2.6 H Total Protein 5.1 L Albumin 2.9 L Globulin Prealbumin 9.0 L Triglycerides Meds: Medications Acetaminophen (Tylenol) 650 mg [place] Q4-6HP PRN PRN Reason: PAIN/FEVER > 101 Aspirin (Aspirin) 81 mg PO DAILY [facility] Atorvastatin Calcium (Lipitor) 80 mg PO DAILY [facility] Diagnostic Test (Pha) (Accu-Chek) 1 each FS Q6 [facility] Last Admin: 03/07/17 06:13 Dose: 1 each Escitalopram Oxalate (Lexapro) 10 mg PO QDAY [facility] Guaifenesin/Codeine Phosphate (Robitussin Ac) 10 ml PO Q4HP PRN PRN Reason: Cough Heparin Sodium (Porcine) (Heparin) 5,000 unit SQ Q12 [facility] Last Admin: 03/06/17 21:24 Dose: 5,000 unit Heparin Sodium (Porcine) (Heparin Flush) 2 ml IV Q12 [facility] Last Admin: 03/06/17 21:24 Dose: Not Given Potassium Chloride 40 meq/ (Dextrose) 520 mls @ 130 mls/hr IV UD PRN PRN Reason: K+ = or < 3.5 Last Infusion: 03/06/17 12:18 Dose: Infused Magnesium Sulfate (Magnesium Sulfate) 2 gm in 50 mls @ 50 mls/hr IV UD PRN PRN Reason: MG = or < 1.7 Acetaminophen (Ofirmev) 1,000 mg in 100 mls @ 200 mls/hr IV Q6HP PRN PRN Reason: PAIN/FEVER > 101 Thiamine HCl 100 mg/ Sodium (Chloride) 51 mls @ 50 mls/hr IV DAILY [facility] Stop: 03/08/17 10:02 Last Infusion: 03/06/17 10:40 Dose: Infused Calcium Gluconate 5 meq/Potassium Phosphate 20 meq/Multivitamins/Minerals 10 ml/ Selenium 60 mcg/ Potassium Acetate 20 meq/ Amino Acids 1,036.7981 mls @ 25 mls/ hr IV Q24H [facility] Last Admin: 03/06/17 12:27 Dose: 25 mls/hr Dextrose/Lactated Ringer's (Dextrose 5%-Lactated Ringers) 1,000 mls @ 75 mls/ hr IV .[id number] [facility] Last Admin: 03/07/17 01:04 Dose: 75 mls/hr Fat Emulsion Intravenous 250 (ml/ Premix) 250 mls @ 25 mls/hr IV Q24H [facility] Last Infusion: 03/07/17 02:05 Dose: Infused Metoprolol Succinate (Toprol Xl) 100 mg PO DAILY [facility] Ondansetron HCl (Zofran) 4 mg IV Q4-6HP PRN PRN Reason: Nausea And Vomiting Pantoprazole Sodium (Protonix) 40 mg IV BIDAC [facility] Last Admin: 03/07/17 08:19 Dose: Not Given Potassium Chloride (Potassium Chloride) 20 meq PT BIDCC [facility] Sodium Chloride (Saline Flush) 10 ml IV Q8 [facility] Last Admin: 03/07/17 07:54 Dose: 10 ml Sodium Chloride (Saline Flush) 10 ml IV UD PRN PRN Reason: FLUSH Last Admin: 03/06/17 12:30 Dose: 10 ml Throat Lozenges (Cepacol) 1 lozenge PO PRN PRN PRN Reason: Sore Throat Trazodone HCl (Desyrel) 50 mg PO HSP PRN PRN Reason: Insomnia Medical - PN: A/P - Time Spent With Patient Total time spent is greater than 50% in coordination of care (as documented) at patient's floor/unit and/or counseling patient: 15 - 24 minutes (1) Gastric outlet obstruction Status: Acute Assessment and plan: * Bowel obstruction secondary to likely esophageal mass. On NG tube decompression. EGD today * Severe protein calorie malnutrition with cachexia-continue TPN * Anion gap acidosis secondary to starvation ketosis-Improving. Down from 31-17 * hypokalemia on IV replacement * Low phosphorus on IV replacement * FANNY improved-creatinine down from 1.1 ->.8 * History of Osuna's esophagus/GERD-ontinue IV PPI * history of CAD -resume metoprolol/statin/aspirinonce able to take orally * full code Plan * replace IV potassium and phosphorus * EKG today * continue TPN Current Visit: Yes Medical - PN: Qual - VTE Deep Vein Thrombosis/Pulmonary Embolism Present on Admission: No
[2017-03-07] MEDS: THIAMINE 100 MG in 0.9 % SODIUM CHLORIDE 50 ML IV SCH (10:00)
[2017-03-07] MEDS: POTASSIUM CHLORIDE 20 MEQ/15 ML ML PT SCH ×2 (10:19→17:46)
[2017-03-07] MEDS: HEPARIN 5,000 UNIT/ML VIAL SQ SCH ×2 (10:22→22:49)
[2017-03-07] MEDS: ESCITALOPRAM 10 MG TABLET PO SCH (10:22)
[2017-03-07] MEDS ORDERED: [UNRECOGNIZED DRUG - REMARK] IV SCH (12:00)
[2017-03-07] MEDS ORDERED: MIDAZOLAM 2 MG/2 ML VIAL ONE (19:45)
[2017-03-07] MEDS ORDERED: MIDAZOLAM 2 MG/2 ML VIAL IV SCH (19:45)
[2017-03-07] MEDS ORDERED: PROPOFOL 20 ML IV ONE (19:45)
[2017-03-07] MEDS ORDERED: PROPOFOL 200 MG/20 ML VIAL IV SCH (19:45)
[2017-03-08] MEDS: DEXTROSE 5%-LR 1,000 ML IV SCH ×3 (04:39→21:38)
[2017-03-08 05:21] LABS: Mean Cell Volume 96.7 fL (80.0-100.0); Mean Corpuscular HGB Conc 34.4 g/dL (31.0-36.0); Mean Corpuscular Hemoglobin 33.3 pg (26.0-34.0); Platelet Count 226 K/mcL (140-440); Red Cell Distribution Width 15.5 % (11.5-14.5)
[2017-03-08 05:23] LABS: ALT/SGPT 7 U/l (0-40); Albumin 2.4 gm/dL (3.2-5.2); Alkaline Phosphatase 60 U/L (39-117); Bilirubin,Direct < 0.2 mg/dL (0.0-0.3); Blood Urea Nitrogen 4 mg/dl (8-23); Gamma Glutamyl Transpeptidase 27 U/L (5-36); Magnesium 1.4 mg/dL (1.6-2.5); Uric Acid 4.2 mg/dL (2.5-8.0)
[2017-03-08] MEDS: 0.9 % SODIUM CHLORIDE 10 ML SYRINGE IV SCH ×3 (06:00→21:18)
[2017-03-08 06:36] LABS: Band Neutrophils % 1 % (0-10); Basophils % (Manual) 1 % (0-2); Eosinophils % (Manual) 1 % (0-7); Lymphocytes % 32 % (15-49); Monocytes % (Manual) 11 % (1-12); Platelet Estimate NORMAL (NORMAL); RBC Morphology NORMAL (NORMAL); Segmented Neutrophils % 54 % (38-78)
--- NOTE | 2017-03-08 07:21 | Internal Med Progress Note ---
Medical - PN: Subj Patient information: Note initiated : 03/08/17 at 7:17 am Service Date, if different from initiated Date: [] Patient: Jannie Weston 62 y/o F admitted on 03/05/17 for Weakness/Bowel Obstruction. Chief Complaint: [] Interval history: 03/05- atient admitted with severe cachexia bowel obstruction. Esophageal mass on CT. EGD scheduled. Surgery consulted.NG tube placed. Patient nothing by mouth. Place PICC line and start TPN. Severe volume depletion and Acidosis secondary to starvation ketosis. 03/06- no overnight events. NG tube no significant output. Improving and anion gap from 31-17. hemoglobin 9.4. EGD in 24 hours. PICC line being placed. Start TPN. no family at bedside. No fever chills nausea vomiting. 03/07- patient lethargic and somnolent. No overnight events. Hemoglobin down to 9.1. Potassium 2.8 phosphorus 1.5. Start aggressive IV replacement. Continue TPN. EGD today. Family at bedside. No fever chills nausea vomiting. Minimal NG output 03/08- Patient status post EGD. Doing well. multiple ulcers pylorus/esophagus. On IV PPI. Advancing to a liquid diet. Start Carafate. Continue electrolyte supplements/ TPN. start physical therapy. Possible discharge in 24 hours if able to tolerate oral diet. Replace potassium and magnesium and phosphorus - Constitutional Vitals: Vital Signs Temp Pulse Resp BP Pulse Ox 97.8 F 86 14 98/74 97 03/08/17 00:01 03/07/17 20:23 03/07/17 20:23 03/08/17 04:01 03/08/17 04:05 Period Temp Pulse Resp BP Sys/Ucadra Pulse Ox Last 24 Hr 97.3 F-98.8 F 81-92 - 95-126/73-95 95-100 Intake and Output 03/07/17 03/08/17 03/08/17 21:59 05:59 13:59 Intake Total 1000 / 1000 Output Total 750 / 750 1250 / 1250 Balance 250 / 250 -1250 / -1250 Weight 104 lb 7.986 oz Intake & Output: Intake & Output 03/07/17 03/08/17 03/08/17 21:59 05:59 13:59 Intake Total 1000 / 1000 Output Total 750 / 750 1250 / 1250 Balance 250 / 250 -1250 / -1250 Weight 104 lb 7.986 oz Intake: IV 1000 / 1000 Dextrose 5%-Lactated 1000 / 1000 Ringers 1,000 ml @ 75 mls /hr IV .[id number] [facility] Rx#: [id number] Output: Gastric Drainage 400 / 400 Right Nare 400 / 400 Urine Catheter Amount 350 / 350 1250 / 1250 General appearance: cooperative, no acute distress Exam: alert oriented nonlabored breathing Nondistended abdomen no anxiety Medical - PN: Obj Da - Labs CBC & Chem 7: 03/08/17 03:33 03/08/17 03:30 Labs: Abnormal Lab Results 03/08/17 03/08/17 03/07/17 03:33 03:30 03:50 WBC 4.3 L RBC 3.00 L Hgb 10.0 L Hct 29.0 L RDW 15.5 H RBC Morphology Poikilocytosis Anisocytosis Ovalocytes ESR Sodium 148 H Potassium 3.1 L 2.8 L* Chloride 112 H 110 H Carbon Dioxide Anion Gap 7.0 L BUN 4 L 6 L Glucose 114 H 125 H Calcium 8.5 L 8.4 L Phosphorus 1.9 L 1.5 L Magnesium 1.4 L Total Protein 4.7 L 4.6 L Albumin 2.4 L 2.6 L Globulin 2.0 L Prealbumin Triglycerides 183 H 180 H 03/07/17 03/06/17 03/06/17 03:50 13:50 12:21 WBC RBC 2.76 L Hgb 9.1 L Hct 26.9 L RDW 15.8 H RBC Morphology Abnorm A Poikilocytosis Anisocytosis 1+ A Ovalocytes Few A ESR 35 H Sodium Potassium Chloride Carbon Dioxide Anion Gap BUN Glucose Calcium Phosphorus Magnesium Total Protein Albumin Globulin Prealbumin 9.0 L Triglycerides 03/06/17 03/06/17 03:50 03:50 WBC RBC 2.85 L Hgb 9.4 L Hct 28.0 L RDW 15.6 H RBC Morphology Abnorm A Poikilocytosis Few A Anisocytosis 1+ A Ovalocytes ESR Sodium Potassium Chloride 110 H Carbon Dioxide 16 L Anion Gap 17.0 H BUN Glucose 65 L Calcium 8.2 L Phosphorus 2.3 L Magnesium 2.6 H Total Protein 5.1 L Albumin 2.9 L Globulin Prealbumin Triglycerides Meds: Medications Acetaminophen (Tylenol) 650 mg [place] Q4-6HP PRN PRN Reason: PAIN/FEVER > 101 Aspirin (Aspirin) 81 mg PO DAILY [facility] Last Admin: 03/07/17 09:00 Dose: Not Given Atorvastatin Calcium (Lipitor) 80 mg PO DAILY [facility] Last Admin: 03/07/17 09:00 Dose: Not Given Diagnostic Test (Pha) (Accu-Chek) 1 each FS Q6 [facility] Last Admin: 03/08/17 06:00 Dose: 1 each Escitalopram Oxalate (Lexapro) 10 mg PO QDAY [facility] Last Admin: 03/07/17 10:22 Dose: Not Given Guaifenesin/Codeine Phosphate (Robitussin Ac) 10 ml PO Q4HP PRN PRN Reason: Cough Heparin Sodium (Porcine) (Heparin) 5,000 unit SQ Q12 [facility] Last Admin: 03/07/17 22:49 Dose: 5,000 unit Heparin Sodium (Porcine) (Heparin Flush) 2 ml IV Q12 [facility] Last Admin: 03/07/17 22:49 Dose: Not Given Potassium Chloride 40 meq/ (Dextrose) 520 mls @ 130 mls/hr IV UD PRN PRN Reason: K+ = or < 3.5 Last Infusion: 03/06/17 12:18 Dose: Infused Magnesium Sulfate (Magnesium Sulfate) 2 gm in 50 mls @ 50 mls/hr IV UD PRN PRN Reason: MG = or < 1.7 Acetaminophen (Ofirmev) 1,000 mg in 100 mls @ 200 mls/hr IV Q6HP PRN PRN Reason: PAIN/FEVER > 101 Thiamine HCl 100 mg/ Sodium (Chloride) 51 mls @ 50 mls/hr IV DAILY [facility] Stop: 03/08/17 10:02 Last Infusion: 03/07/17 12:45 Dose: Infused Dextrose/Lactated Ringer's (Dextrose 5%-Lactated Ringers) 1,000 mls @ 75 mls/ hr IV .[id number] [facility] Last Admin: 03/08/17 04:39 Dose: Not Given Fat Emulsion Intravenous 250 (ml/ Premix) 250 mls @ 25 mls/hr IV TuThSa@1600 [facility] Calcium Gluconate 5 meq/Potassium Phosphate 40 meq/Multivitamins/Minerals 10 ml/ Selenium 60 mcg/ Potassium Acetate 20 meq/ Magnesium Sulfate 8.12 meq/ Amino Acids 1,043.3435 mls @ 25 mls/hr IV Q24H [facility] Last Admin: 03/07/17 12:45 Dose: 25 mls/hr Potassium Phosphate 40 meq/ (Dextrose) 509.0909 mls @ 127.273 mls/hr IV ONCE ONE Stop: 03/08/17 11:13 Metoprolol Succinate (Toprol Xl) 100 mg PO DAILY [facility] Ondansetron HCl (Zofran) 4 mg IV Q4-6HP PRN PRN Reason: Nausea And Vomiting Pantoprazole Sodium (Protonix) 40 mg IV BIDAC [facility] Last Admin: 03/07/17 17:45 Dose: 40 mg Potassium Chloride (Potassium Chloride) 20 meq PT BIDCC [facility] Last Admin: 03/07/17 17:46 Dose: Not Given Sodium Chloride (Saline Flush) 10 ml IV Q8 [facility] Last Admin: 03/08/17 06:00 Dose: 10 ml Sodium Chloride (Saline Flush) 10 ml IV UD PRN PRN Reason: FLUSH Last Admin: 03/06/17 12:30 Dose: 10 ml Sucralfate (Carafate) 1 gm PO ACHS [facility] Throat Lozenges (Cepacol) 1 lozenge PO PRN PRN PRN Reason: Sore Throat Last Admin: 03/07/17 14:31 Dose: 1 lozenge Trazodone HCl (Desyrel) 50 mg PO HSP PRN PRN Reason: Insomnia Medical - PN: A/P - Time Spent With Patient Total time spent is greater than 50% in coordination of care (as documented) at patient's floor/unit and/or counseling patient: 25 - 35 minutes (1) Gastric outlet obstruction Status: Acute Assessment and plan: * peptic ulcer disease with esophageal and pyloric ulcers-continue PPI/ Carafate. Advanced liquid diet * Hypokalemia,Low magnesium and low phosphorus on IV and oral replacement * Severe protein calorie malnutrition with cachexia-continue TPN * Anion gap acidosis secondary to starvation ketosis-resolved * FANNY improved-creatinine down from 1.1 ->0.6 * history of CAD -continue metoprolol/statin/aspirin * full code Plan * replace IV and oral potassium,magnesium and phosphorus * advance diet as tolerated * possible discharge in 24-48 hours * physical therapy Current Visit: Yes Medical - PN: Qual - VTE Deep Vein Thrombosis/Pulmonary Embolism Present on Admission: No
[2017-03-08] MEDS: PANTOPRAZOLE 40 MG VIAL IV SCH ×2 (07:32→17:40)
[2017-03-08] MEDS ORDERED: POTASSIUM PHOSPHATE 40 MEQ in DEXTROSE 5% IN WATER 500 ML IV ONE (08:00)
[2017-03-08] MEDS: SUCRALFATE 1 GM/10 ML ORAL.SUSP PO SCH ×4 (08:08→21:08)
[2017-03-08] MEDS: POTASSIUM CHLORIDE 20 MEQ/15 ML ML PT SCH ×2 (09:16→17:40)
[2017-03-08] MEDS: HEPARIN 5,000 UNIT/ML VIAL SQ SCH ×2 (09:17→21:08)
[2017-03-08] MEDS: ASPIRIN 81 MG TAB.CHEW PO SCH (09:17)
[2017-03-08] MEDS: ESCITALOPRAM 10 MG TABLET PO SCH (09:18)
[2017-03-08] MEDS: ATORVASTATIN 20 MG TABLET PO SCH (09:18)
[2017-03-08] MEDS: THIAMINE 100 MG in 0.9 % SODIUM CHLORIDE 50 ML IV SCH (09:19)
[2017-03-08] MEDS: METOPROLOL SUCCINATE 50 MG TAB.XL.24H PO SCH (09:20)
[2017-03-08] MEDS ORDERED: [UNRECOGNIZED DRUG - REMARK] IV SCH (12:00)
[2017-03-08] MEDS ORDERED: FAT EMULSION 20% 250 ML in PREMIX 1 BAG IV SCH (16:00)
[2017-03-09 04:37] LABS: Mean Cell Volume 97.1 fL (80.0-100.0); Mean Corpuscular HGB Conc 33.6 g/dL (31.0-36.0); Mean Corpuscular Hemoglobin 32.6 pg (26.0-34.0); Platelet Count 194 K/mcL (140-440); RBC 2.82 M/mcL (4.00-5.20)
[2017-03-09 04:53] LABS: ALT/SGPT 12 U/l (0-40); Albumin 2.5 gm/dL (3.2-5.2); Albumin/Globulin Ratio 1.2 (1.0-2.3); Alkaline Phosphatase 64 U/L (39-117); Bilirubin,Direct < 0.2 mg/dL (0.0-0.3); Blood Urea Nitrogen 6 mg/dl (8-23); Gamma Glutamyl Transpeptidase 30 U/L (5-36); Uric Acid 3.5 mg/dL (2.5-8.0)
[2017-03-09 05:05] LABS: Prealbumin 6.8 mg/dl (20-40)
[2017-03-09] MEDS: 0.9 % SODIUM CHLORIDE 10 ML SYRINGE IV SCH ×3 (05:26→21:57)
[2017-03-09 05:31] LABS: Anisocytosis 1+ (NONE SEEN); Band Neutrophils % 1 % (0-10); Lymphocytes % 32 % (15-49); Monocytes % (Manual) 8 % (1-12); Platelet Estimate NORMAL (NORMAL); RBC Morphology ABNORM (NORMAL); Segmented Neutrophils % 57 % (38-78)
[2017-03-09] MEDS ORDERED: ACETAMINOPHEN 325 MG TABLET PO ONE (07:48)
[2017-03-09] MEDS: POTASSIUM CHLORIDE 20 MEQ/15 ML ML PT SCH ×2 (07:59→17:46)
[2017-03-09] MEDS: SUCRALFATE 1 GM/10 ML ORAL.SUSP PO SCH ×4 (08:00→20:09)
[2017-03-09] MEDS: 0.9 % SODIUM CHLORIDE 10 ML SYRINGE IV PRN ×2 (08:00→12:52)
[2017-03-09] MEDS: PANTOPRAZOLE 40 MG VIAL IV SCH (08:00)
[2017-03-09] MEDS ORDERED: ACETAMINOPHEN 325 MG TABLET PO PRN (08:06)
[2017-03-09] MEDS: METOPROLOL SUCCINATE 50 MG TAB.XL.24H PO SCH (09:00)
--- NOTE | 2017-03-09 09:24 | Internal Med Progress Note ---
Medical - PN: Subj Patient information: Note initiated : 03/09/17 at 9:21 am Service Date, if different from initiated Date: [] Patient: Jannie Weston 62 y/o F admitted on 03/05/17 for Weakness/Bowel Obstruction. Chief Complaint: [] Interval history: 03/05- atient admitted with severe cachexia bowel obstruction. Esophageal mass on CT. EGD scheduled. Surgery consulted.NG tube placed. Patient nothing by mouth. Place PICC line and start TPN. Severe volume depletion and Acidosis secondary to starvation ketosis. 03/06- no overnight events. NG tube no significant output. Improving and anion gap from 31-17. hemoglobin 9.4. EGD in 24 hours. PICC line being placed. Start TPN. no family at bedside. No fever chills nausea vomiting. 03/07- patient lethargic and somnolent. No overnight events. Hemoglobin down to 9.1. Potassium 2.8 phosphorus 1.5. Start aggressive IV replacement. Continue TPN. EGD today. Family at bedside. No fever chills nausea vomiting. Minimal NG output 03/08- Patient status post EGD. Doing well. multiple ulcers pylorus/esophagus. On IV PPI. Advancing to a liquid diet. Start Carafate. Continue electrolyte supplements/ TPN. start physical therapy. Possible discharge in 24 hours if able to tolerate oral diet. Replace potassium and magnesium and phosphorus 03/09-patient tolerating diet. Feeling a lot better. transition to oral PPI. possible discharge in 24 hours. Continue dietary supplements per dietitian. Hemoglobin stable at 9.2. electrolytes level normalized. potassium 3.8 phosphorus of 3 magnesium at 2 adequate replacement. continue physical therapy. Possible discharge in 24 hours - Constitutional Vitals: Vital Signs Temp Pulse Resp BP Pulse Ox 98.1 F 64 16 96/71 100 03/09/17 07:00 03/08/17 16:00 03/09/17 07:00 03/09/17 07:00 03/09/17 07:00 Period Temp Pulse Resp BP Sys/Cuadra Pulse Ox Last 24 Hr 97.0 F-98.1 F 64 16-16 63-102/51-74 94-100 Intake and Output 03/08/17 03/09/17 03/09/17 21:59 05:59 13:59 Intake Total 1254 / 1254 250 / 250 Output Total 1325 / 1325 700 / 700 Balance -71 / -71 -700 / -700 250 / 250 Weight 107 lb 2.24 oz Intake & Output: Intake & Output 03/08/17 03/09/17 03/09/17 21:59 05:59 13:59 Intake Total 1254 / 1254 250 / 250 Output Total 1325 / 1325 700 / 700 Balance -71 / -71 -700 / -700 250 / 250 Weight 107 lb 2.24 oz Intake: IV 981 / 981 250 / 250 Dextrose 5%-Lactated 981 / 981 Ringers 1,000 ml @ 75 mls /hr IV .[id number] [facility], [facility]–1983 Rx#: [id number] Intralipid 20% 250 ml In 250 / 250 Premix 1 Bag @ 25 mls/hr IV TuThSa@1600 [facility] Rx#: [id number] Oral 120 / 120 IV - Manual Only 153 / 153 Output: Urine Catheter Amount 1325 / 1325 700 / 700 Other: # Bowel Movements 1 1 General appearance: cooperative, no acute distress Exam: alert oriented nonlabored breathing Nontender abdomen No lymphedema Medical - PN: Obj Da - Labs CBC & Chem 7: 03/09/17 03:40 03/09/17 03:40 Labs: Abnormal Lab Results 03/09/17 03/09/17 03/08/17 03:40 03:40 03:33 WBC 4.3 L RBC 2.82 L 3.00 L Hgb 9.2 L 10.0 L Hct 27.3 L 29.0 L RDW 16.0 H 15.5 H RBC Morphology Abnorm A Anisocytosis 1+ A Ovalocytes ESR Sodium Potassium Chloride 109 H Anion Gap 7.0 L BUN 6 L Glucose 118 H Calcium 8.5 L Phosphorus Magnesium Total Protein 4.6 L Albumin 2.5 L Globulin 2.1 L Prealbumin 6.8 L Triglycerides 03/08/17 03/07/17 03/07/17 03:30 03:50 03:50 WBC RBC 2.76 L Hgb 9.1 L Hct 26.9 L RDW 15.8 H RBC Morphology Abnorm A Anisocytosis 1+ A Ovalocytes Few A ESR Sodium 148 H Potassium 3.1 L 2.8 L* Chloride 112 H 110 H Anion Gap 7.0 L BUN 4 L 6 L Glucose 114 H 125 H Calcium 8.5 L 8.4 L Phosphorus 1.9 L 1.5 L Magnesium 1.4 L Total Protein 4.7 L 4.6 L Albumin 2.4 L 2.6 L Globulin 2.0 L Prealbumin Triglycerides 183 H 180 H 03/06/17 03/06/17 13:50 12:21 WBC RBC Hgb Hct RDW RBC Morphology Anisocytosis Ovalocytes ESR 35 H Sodium Potassium Chloride Anion Gap BUN Glucose Calcium Phosphorus Magnesium Total Protein Albumin Globulin Prealbumin 9.0 L Triglycerides Meds: Medications Acetaminophen (Tylenol) 650 mg PA Q4-6HP PRN PRN Reason: PAIN/FEVER > 101 Acetaminophen (Tylenol) 650 mg PO Q4-6HP PRN PRN Reason: PAIN/FEVER > 101 Aspirin (Aspirin) 81 mg PO DAILY [facility] Last Admin: 03/08/17 09:17 Dose: 81 mg Atorvastatin Calcium (Lipitor) 80 mg PO DAILY [facility] Last Admin: 03/08/17 09:18 Dose: 80 mg Diagnostic Test (Pha) (Accu-Chek) 1 each FS Q6 [facility] Last Admin: 03/09/17 05:25 Dose: 1 each Escitalopram Oxalate (Lexapro) 10 mg PO QDAY [facility] Last Admin: 03/08/17 09:18 Dose: 10 mg Guaifenesin/Codeine Phosphate (Robitussin Ac) 10 ml PO Q4HP PRN PRN Reason: Cough Heparin Sodium (Porcine) (Heparin) 5,000 unit SQ Q12 [facility] Last Admin: 03/08/17 21:08 Dose: 5,000 unit Heparin Sodium (Porcine) (Heparin Flush) 2 ml IV Q12 [facility] Last Admin: 03/08/17 21:00 Dose: Not Given Potassium Chloride 40 meq/ (Dextrose) 520 mls @ 130 mls/hr IV UD PRN PRN Reason: K+ = or < 3.5 Last Infusion: 03/06/17 12:18 Dose: Infused Magnesium Sulfate (Magnesium Sulfate) 2 gm in 50 mls @ 50 mls/hr IV UD PRN PRN Reason: MG = or < 1.7 Last Infusion: 03/08/17 18:19 Dose: Infused Acetaminophen (Ofirmev) 1,000 mg in 100 mls @ 200 mls/hr IV Q6HP PRN PRN Reason: PAIN/FEVER > 101 Dextrose/Lactated Ringer's (Dextrose 5%-Lactated Ringers) 1,000 mls @ 75 mls/ hr IV .[id number] [facility] Last Admin: 03/08/17 21:38 Dose: 75 mls/hr Fat Emulsion Intravenous 250 (ml/ Premix) 250 mls @ 25 mls/hr IV TuThSa@1600 [facility] Last Infusion: 03/09/17 06:00 Dose: Infused Calcium Gluconate 5 meq/Potassium Phosphate 40 meq/Multivitamins/Minerals 10 ml/ Selenium 60 mcg/ Potassium Acetate 20 meq/ Magnesium Sulfate 16.24 meq/ Amino Acids 1,045.3435 mls @ 25 mls/hr IV Q24H [facility] Stop: 03/09/17 11:59 Last Admin: 03/08/17 12:29 Dose: 25 mls/hr Calcium Gluconate 5 meq/Potassium Phosphate 60 meq/Multivitamins/Minerals 10 ml/ Selenium 60 mcg/ Potassium Acetate 20 meq/ Magnesium Sulfate 24.36 meq/ Amino Acids 1,051.889 mls @ 45 mls/hr IV Q24H [facility] Ondansetron HCl (Zofran) 4 mg IV Q4-6HP PRN PRN Reason: Nausea And Vomiting Pantoprazole Sodium (Protonix) 40 mg PO BIDAC [facility] Potassium Chloride (Potassium Chloride) 20 meq PT BIDCC [facility] Last Admin: 03/09/17 07:59 Dose: 20 meq Sodium Chloride (Saline Flush) 10 ml IV Q8 [facility] Last Admin: 03/09/17 05:26 Dose: Not Given Sodium Chloride (Saline Flush) 10 ml IV UD PRN PRN Reason: FLUSH Last Admin: 03/09/17 08:00 Dose: 10 ml Sucralfate (Carafate) 1 gm PO ACHS [facility] Last Admin: 03/09/17 08:00 Dose: 1 gm Throat Lozenges (Cepacol) 1 lozenge PO PRN PRN PRN Reason: Sore Throat Last Admin: 03/07/17 14:31 Dose: 1 lozenge Trazodone HCl (Desyrel) 50 mg PO HSP PRN PRN Reason: Insomnia Medical - PN: A/P - Time Spent With Patient Total time spent is greater than 50% in coordination of care (as documented) at patient's floor/unit and/or counseling patient: 15 - 24 minutes (1) Gastric outlet obstruction Status: Acute Assessment and plan: * Peptic ulcer disease with esophageal and pyloric ulcers-continue oral PPI/ Carafate. advance diet to regular high-protein calorie supplements * Hypokalemia,Low magnesium and low phosphorus clinically resolved with aggressive IV replacement * Severe protein calorie malnutrition with cachexia-off TPN. continue protein calorie supplements * Anion gap acidosis secondary to starvation ketosis-resolved * FANNY improved-creatinine down from 1.1 ->0.6 * history of CAD hold metoprolol in light of hypotension/continue statin/ aspirin * full code Plan * possible discharge in 24 hours * protein calorie supplements * physical therapy Current Visit: Yes Medical - PN: Qual - VTE Deep Vein Thrombosis/Pulmonary Embolism Present on Admission: No
[2017-03-09] MEDS: ESCITALOPRAM 10 MG TABLET PO SCH (09:27)
[2017-03-09] MEDS: ASPIRIN 81 MG TAB.CHEW PO SCH (09:27)
[2017-03-09] MEDS: HEPARIN 5,000 UNIT/ML VIAL SQ SCH ×2 (09:27→20:09)
[2017-03-09] MEDS: ATORVASTATIN 20 MG TABLET PO SCH (09:32)
[2017-03-09] MEDS ORDERED: [UNRECOGNIZED DRUG - REMARK] IV SCH (12:00)
[2017-03-09] MEDS: PANTOPRAZOLE 40 MG TABLET PO SCH (17:46)
[2017-03-09] MEDS: DEXTROSE 5%-LR 1,000 ML IV SCH (21:07)
[2017-03-10] MEDS: 0.9 % SODIUM CHLORIDE 10 ML SYRINGE IV SCH ×3 (05:44→20:32)
[2017-03-10 07:19] LABS: ALT/SGPT 23 U/l (0-40); Albumin 2.6 gm/dL (3.2-5.2); Albumin/Globulin Ratio 1.4 (1.0-2.3); Alkaline Phosphatase 82 U/L (39-117); Bilirubin,Direct < 0.2 mg/dL (0.0-0.3); Blood Urea Nitrogen 13 mg/dl (8-23); Gamma Glutamyl Transpeptidase 49 U/L (5-36); Magnesium 2.3 mg/dL (1.6-2.5); Prealbumin 8.9 mg/dl (20-40); Uric Acid 3.1 mg/dL (2.5-8.0)
[2017-03-10] MEDS: PANTOPRAZOLE 40 MG TABLET PO SCH ×2 (07:28→16:42)
[2017-03-10] MEDS: SUCRALFATE 1 GM/10 ML ORAL.SUSP PO SCH ×2 (07:28→11:40)
[2017-03-10] MEDS ORDERED: [UNRECOGNIZED DRUG - REMARK] IV SCH (08:00)
--- NOTE | 2017-03-10 08:19 | Operative Note ---
DATE OF OPERATION: 03/07/2017 PREPROCEDURE DIAGNOSES: Esophagitis, esophageal cancer, possible gastric cancer or mechanical outlet obstruction. POSTPROCEDURE DIAGNOSES: Prepyloric and pyloric channel ulcer, reflux esophagitis with ulcer, EGitis, slight ring EG junction. PROCEDURE: Esophagogastroduodenoscopy with biopsy and dilation over a guidewire. SURGEON: Isaak Bergeron MD. SPECIMENS OBTAINED: Biopsies from antrum for histopathology and CLOtest, biopsies from distal esophagus. CLOtest RESULTS: INDICATIONS: This is a 62-year-old lady whose primary care physician is Dr. Meyer. The patient I believe had started losing weight around 07/2015. I believe she has had greater trouble in the last 3 or 4 months. Her weight loss has been from about 134 to 101. She does complain of some nausea, vomiting, early satiety, reflux symptoms, dysphagia. CAT scan showed thickening in the distal esophagus. There was some liquid in the esophagus. 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 Because of her symptoms endoscopy is indicated. INFORMED CONSENT: The procedure was reviewed with the patient. The patient had no further questions and accepts the risks and benefits thereof. One of the risks that were discussed included . Additional risks that were also discussed included bleeding, reaction to medication, possible perforation and possible need for surgery. IV MEDICATIONS USED: Versed 2, propofol 80. SEDATION TIME: 1942 TO 2014. Please see nurse's notes for pre, intra and post service work. ADDITIONAL COMMENTS: NG tube was removed and left out. FINDINGS: ESOPHAGUS: Proximal and mid esophagus normal. Distal esophagus: There was an increased number of fine blood vessels and there was one ulcer about 15 mm long, about 3 mm wide. There was slight scarring noted. Dilation was accomplished with a 15 mm [place]er dilator. Biopsies were taken from the distal esophagus. EG junction was around 38-39 cm. There was slight erythema and edema, a little scarring. There was a slight ring noted. As mentioned above, dilation was accomplished. No significant hiatal hernia was seen. STOMACH: Cardia, fundus and body normal. Antrum: There was a prepyloric ulcer that extended right into the pyloric channel, estimated to be around 4 x 10 mm in size. Biopsies were taken from antrum for histopathology and CLOtest. Pylorus did have an ulcer, but otherwise is satisfactory. Mechanically the pylorus was open, but physiologically it may be partially obstructed. DUODENUM: This appeared normal, both the bulb and descending limb of the duodenum. RECOMMENDATIONS: Continue PPI medication. I believe she is on Protonix. Diet can be tried in the morning, liquid. If the diet is not well tolerated one may add Carafate and/or GI cocktail. Antireflux measures should be followed fairly carefully. I would recommend a repeat EGD in about 3 months to evaluate status of healing. [email or web address] Job ID: [id number] Doc ID: [id number] Isaak Meyer MD
--- NOTE | 2017-03-10 08:58 | XRay Report ---
CLINICAL INFORMATION: Abdominal pain and distention COMPARISON: 03/06/2017 FINDINGS: OG tube is now out. Stomach, small and large bowel contain scant amount of stool and gas compatible with decompression. The There is no free air, soft tissue mass or organomegaly. Few small calcifications in the right true pelvis have been stable for many exams and likely is a small calcified fibroid or calcified granuloma.] Right total hip prostheses in anatomic position. Moderate degenerative change in the left hip with large subchondral cysts seen as before IMPRESSION: Following NG tube removal, the GI tract appears decompressed. No evidence of bowel or gastric obstruction. No acute disease Interpreted and Authenticated by: Lso Helms 03/10/17
[2017-03-10] MEDS: POTASSIUM CHLORIDE 20 MEQ/15 ML ML PT SCH ×2 (09:00→16:43)
[2017-03-10] MEDS: ASPIRIN 81 MG TAB.CHEW PO SCH (09:00)
[2017-03-10] MEDS: ESCITALOPRAM 10 MG TABLET PO SCH (09:00)
[2017-03-10] MEDS: ATORVASTATIN 20 MG TABLET PO SCH (09:00)
[2017-03-10] MEDS: HEPARIN 5,000 UNIT/ML VIAL SQ SCH ×2 (09:01→20:31)
[2017-03-10 09:04] LABS: Appearance,Urine TURBID; Bacteria,Urine 0 /hpf (0); Bilirubin,Urine NEG (NEG); Color,Urine YELLOW; Glucose,Urine (UA) NEGATIVE (NEG); Leukocyte Esterase,Urine 500 /uL (NEG); Nitrate,Urine NEG (NEG); Protein,Urine 100 mg/dL (NEG); Specific Gravity,Urine 1.008 (1.000-1.035); Urine Blood >=1.0 mg/dL (<0.03); Urine Hyaline Cast 9 /lpf (0-2); Urine RBC > 182 /hpf (0-1); Urine Squamous Epithelial Cell 1 /hpf (0-4); Urine WBC > 182 /hpf (0-4); Urobilinogen,Urine NEG (NEG)
[2017-03-10] MEDS: 0.9 % SODIUM CHLORIDE 10 ML SYRINGE IV PRN (09:08)
--- NOTE | 2017-03-10 09:37 | Internal Med Progress Note ---
Medical - PN: Subj Patient information: Note initiated : 03/10/17 at 9:33 am Service Date, if different from initiated Date: [] Patient: Jannie Weston 62 y/o F admitted on 03/05/17 for Weakness/Bowel Obstruction. Chief Complaint: [] Interval history: 03/05- atient admitted with severe cachexia bowel obstruction. Esophageal mass on CT. EGD scheduled. Surgery consulted.NG tube placed. Patient nothing by mouth. Place PICC line and start TPN. Severe volume depletion and Acidosis secondary to starvation ketosis. 03/06- no overnight events. NG tube no significant output. Improving and anion gap from 31-17. hemoglobin 9.4. EGD in 24 hours. PICC line being placed. Start TPN. no family at bedside. No fever chills nausea vomiting. 03/07- patient lethargic and somnolent. No overnight events. Hemoglobin down to 9.1. Potassium 2.8 phosphorus 1.5. Start aggressive IV replacement. Continue TPN. EGD today. Family at bedside. No fever chills nausea vomiting. Minimal NG output 03/08- Patient status post EGD. Doing well. multiple ulcers pylorus/esophagus. On IV PPI. Advancing to a liquid diet. Start Carafate. Continue electrolyte supplements/ TPN. start physical therapy. Possible discharge in 24 hours if able to tolerate oral diet. Replace potassium and magnesium and phosphorus 03/09-patient tolerating diet. Feeling a lot better. transition to oral PPI. possible discharge in 24 hours. Continue dietary supplements per dietitian. Hemoglobin stable at 9.2. electrolytes level normalized. potassium 3.8 phosphorus of 3 magnesium at 2 adequate replacement. continue physical therapy. Possible discharge in 24 hours 03/10- patient doing well. Sitting up in chair. Intermittent confusion however improving nutritional status. Tolerating diet. Continue PPI/Carafate. urine with significant leukocytes. Start antibiotic coverage. Transfer to medical floor. Case discussed with patient's and the need for SNF transfer in light of significant deconditioning and requirement of PT OT and podiatry consults. Patient agreeable to transfer to care Center. Case management to coordinate same. no overnight fever chills nausea vomiting or concerns per staff other than intermittent confusion. - Constitutional Vitals: Vital Signs Temp Pulse Resp BP Pulse Ox 98.0 F 64 14 109/77 100 03/09/17 20:20 03/08/17 16:00 03/09/17 20:20 03/10/17 04:01 03/09/17 20:20 Period Temp Pulse Resp BP Sys/Cuadra Pulse Ox Last 24 Hr 97.8 F-98.4 F 14- 70-124/49-78 98-100 Intake and Output 03/09/17 03/10/17 03/10/17 21:59 05:59 13:59 Intake Total 240 / 240 Output Total 225 / 225 650 / 650 Balance -650 / -650 Weight 112 lb 6.972 oz Intake & Output: Intake & Output 03/09/17 03/10/17 03/10/17 21:59 05:59 13:59 Intake Total 240 / 240 Output Total 225 / 225 650 / 650 Balance -650 / -650 Weight 112 lb 6.972 oz Intake: Oral 240 / 240 Output: Void Amount 225 / 225 650 / 650 Other: Meal Dinner Percent of Meal Consumed 25% Feeding Ability Independent Medical - PN: Obj Da - Labs CBC & Chem 7: 03/10/17 03:30 03/10/17 05:30 Labs: Abnormal Lab Results 03/10/17 03/10/17 03/09/17 07:21 05:30 03:40 WBC RBC Hgb Hct RDW RBC Morphology Anisocytosis Sodium Potassium Chloride 109 H Anion Gap 7.0 L BUN 6 L Glucose 108 H 118 H Calcium 8.4 L 8.5 L Phosphorus Magnesium GGT 49 H Total Protein 4.5 L 4.6 L Albumin 2.6 L 2.5 L Globulin 1.9 L 2.1 L Prealbumin 8.9 L 6.8 L Triglycerides 233 H Urine Protein 100 A Urine Occult Blood >=1.0 A Ur Leukocyte Esterase 500 A Urine RBC > 182 H Urine WBC > 182 H Hyaline Casts 9 H 03/09/17 03/08/17 03/08/17 03:40 03:33 03:30 WBC 4.3 L RBC 2.82 L 3.00 L Hgb 9.2 L 10.0 L Hct 27.3 L 29.0 L RDW 16.0 H 15.5 H RBC Morphology Abnorm A Anisocytosis 1+ A Sodium 148 H Potassium 3.1 L Chloride 112 H Anion Gap BUN 4 L Glucose 114 H Calcium 8.5 L Phosphorus 1.9 L Magnesium 1.4 L GGT Total Protein 4.7 L Albumin 2.4 L Globulin Prealbumin Triglycerides 183 H Urine Protein Urine Occult Blood Ur Leukocyte Esterase Urine RBC Urine WBC Hyaline Casts Meds: Medications Acetaminophen (Tylenol) 650 mg NC Q4-6HP PRN PRN Reason: PAIN/FEVER > 101 Acetaminophen (Tylenol) 650 mg PO Q4-6HP PRN PRN Reason: PAIN/FEVER > 101 Last Admin: 03/10/17 06:19 Dose: 650 mg Aspirin (Aspirin) 81 mg PO DAILY [facility] Last Admin: 03/10/17 09:00 Dose: 81 mg Atorvastatin Calcium (Lipitor) 80 mg PO DAILY [facility] Last Admin: 03/10/17 09:00 Dose: 80 mg Diagnostic Test (Pha) (Accu-Chek) 1 each FS Q6 [facility] Last Admin: 03/10/17 05:50 Dose: 1 each Escitalopram Oxalate (Lexapro) 10 mg PO QDAY [facility] Last Admin: 03/10/17 09:00 Dose: 10 mg Guaifenesin/Codeine Phosphate (Robitussin Ac) 10 ml PO Q4HP PRN PRN Reason: Cough Heparin Sodium (Porcine) (Heparin) 5,000 unit SQ Q12 [facility] Last Admin: 03/10/17 09:01 Dose: 5,000 unit Heparin Sodium (Porcine) (Heparin Flush) 2 ml IV Q12 [facility] Last Admin: 03/10/17 09:00 Dose: 2 ml Potassium Chloride 40 meq/ (Dextrose) 520 mls @ 130 mls/hr IV UD PRN PRN Reason: K+ = or < 3.5 Last Infusion: 03/06/17 12:18 Dose: Infused Magnesium Sulfate (Magnesium Sulfate) 2 gm in 50 mls @ 50 mls/hr IV UD PRN PRN Reason: MG = or < 1.7 Last Infusion: 03/08/17 18:19 Dose: Infused Acetaminophen (Ofirmev) 1,000 mg in 100 mls @ 200 mls/hr IV Q6HP PRN PRN Reason: PAIN/FEVER > 101 Fat Emulsion Intravenous 250 (ml/ Premix) 250 mls @ 25 mls/hr IV TuThSa@1600 [facility] Last Infusion: 03/09/17 06:00 Dose: Infused Calcium Gluconate 5 meq/Potassium Phosphate 40 meq/Multivitamins/Minerals 10 ml/ Selenium 60 mcg/ Potassium Acetate 10 meq/ Magnesium Sulfate 24.36 meq/ Amino Acids 1,042.3435 mls @ 45 mls/hr IV Q24H [facility] Metoprolol Succinate (Toprol Xl) 50 mg PO DAILY [facility] Ondansetron HCl (Zofran) 4 mg IV Q4-6HP PRN PRN Reason: Nausea And Vomiting Pantoprazole Sodium (Protonix) 40 mg PO BIDAC [facility] Last Admin: 03/10/17 07:28 Dose: 40 mg Potassium Chloride (Potassium Chloride) 20 meq PT BIDCC [facility] Last Admin: 03/10/17 09:00 Dose: 20 meq Sodium Chloride (Saline Flush) 10 ml IV Q8 [id number] Last Admin: 03/10/17 05:44 Dose: 10 ml Sodium Chloride (Saline Flush) 10 ml IV UD PRN PRN Reason: FLUSH Last Admin: 03/10/17 09:08 Dose: 10 ml Sucralfate (Carafate) 1 gm PO ACHS [facility] Last Admin: 03/10/17 07:28 Dose: 1 gm Throat Lozenges (Cepacol) 1 lozenge PO PRN PRN PRN Reason: Sore Throat Last Admin: 03/07/17 14:31 Dose: 1 lozenge Trazodone HCl (Desyrel) 50 mg PO HSP PRN PRN Reason: Insomnia Medical - PN: A/P - Time Spent With Patient Total time spent is greater than 50% in coordination of care (as documented) at patient's floor/unit and/or counseling patient: 25 - 35 minutes (1) Gastric outlet obstruction Status: Acute Assessment and plan: * Peptic ulcer disease with esophageal and pyloric ulcers-continue oral PPI/ Carafate. advance diet to regular high-protein calorie supplements * complicated UTI-antibiotic coverage * Severe protein calorie malnutrition with cachexia-off TPN. continue protein calorie supplements * multiple electrolyte abnormalities- clinically resolved with aggressive replacement * Anion gap acidosis secondary to starvation ketosis-resolved * FANNY improved-creatinine down from 1.1 ->0.6 * history of CAD hold metoprolol in light of hypotension/continue statin/ aspirin * full code Plan * discontinue oral potassium * Continue oral diet supplements * Antibiotic coverage * physical therapy * SNF transfer coordination * transfer to medical floor Current Visit: Yes Medical - PN: Qual - VTE Deep Vein Thrombosis/Pulmonary Embolism Present on Admission: No
[2017-03-10 10:53] LABS: Basophils # (Auto) 0 K/mcL (0.0-0.3); Basophils % (Auto) 0.5 % (0.0-2.0); Eosinophils # (Auto) 0.1 K/mcL (0.0-0.7); Eosinophils % (Auto) 1.8 % (0.0-7.0); Granulocytes % (Auto) 72.6 % (38.0-78.0); Lymphocytes # (Auto) 0.8 K/mcL (1.5-4.8); Lymphocytes % (Auto) 11.1 % (15.5-49.0); Mean Cell Volume 97.6 fL (80.0-100.0); Mean Corpuscular HGB Conc 33.3 g/dL (31.0-36.0); Mean Corpuscular Hemoglobin 32.5 pg (26.0-34.0); Platelet Count 215 K/mcL (140-440); RBC 2.87 M/mcL (4.00-5.20); Red Cell Distribution Width 16.1 % (11.5-14.5)
[2017-03-10] MEDS ORDERED: guaiFENesin/CODEINE 10 ML UDC PO PRN (12:08)
[2017-03-10] MEDS ORDERED: 0.9 % SODIUM CHLORIDE 10 ML SYRINGE IV PRN (12:08)
[2017-03-10] MEDS ORDERED: ACETAMINOPHEN 325 MG TABLET PO PRN (12:08)
[2017-03-10] MEDS ORDERED: BENZOCAINE/MENTHOL 1 LOZENGE PO PRN (12:08)
[2017-03-10] MEDS ORDERED: MAGNESIUM SULFATE 2 GM/50 ML BAG IV PRN (12:08)
[2017-03-10] MEDS ORDERED: ONDANSETRON 4 MG/2 ML VIAL IV PRN (12:08)
[2017-03-10] MEDS ORDERED: ACETAMINOPHEN 650 MG SUPP.RECT PR PRN (12:08)
[2017-03-10] MEDS ORDERED: traZODone HCL 50 MG TABLET PO PRN (12:08)
[2017-03-10] MEDS ORDERED: ACETAMINOPHEN 1,000 MG/100 ML BOTTLE IV PRN (12:08)
[2017-03-10] MEDS: cefTRIAXone 2 GM in DEXTROSE 5% IN WATER 50 ML IV SCH (13:47)
--- NOTE | 2017-03-10 13:59 | Surgical Pathology Report ---
HISTOLOGY SPECIMEN MICROSCOPIC DIAGNOSIS SPECIMEN A - STOMACH, ANTRUM, BIOPSY: -- MILD CHRONIC GASTRITIS WITH FOCAL ACTIVITY AND SUPERFICIAL MUCOSAL EROSION. -- NO HELICOBACTER TYPE ORGANISMS IDENTIFIED (ALCIAN YELLOW STAIN WITH ADEQUATE TECHNICAL CONTROL). SPECIMEN B - ESOPHAGUS, DISTAL, BIOPSY: -- GASTROESOPHAGEAL JUNCTIONAL MUCOSA WITH MILD ACUTE AND CHRONIC INFLAMMATION. -- NO INTESTINAL METAPLASIA IDENTIFIED (ALCIAN BLUE STAIN WITH ADEQUATE TECHNICAL CONTROL). -- PORTIONS OF SQUAMOUS MUCOSA WITH MILD ACUTE ESOPHAGITIS (UP TO 10 NEUTROPHILS AND 2 EOSINOPHILS/hpf). -- NO FUNGAL ORGANISMS IDENTIFIED (PAS STAIN WITH ADEQUATE TECHNICAL CONTROL). (RLF:sln) CLINICAL HISTORY Obstruction in esophagus; 4 months of weight loss; reflux; dysphagia; early satiety; nausea/emesis. PROCEDURAL IMPRESSION Pyloric channel ulcer; rule out H. pylori; esophagitis; esophageal ulcer; ring EG junction. GROSS DESCRIPTION Specimen A is received in formalin labeled with the patient identifiers and antrum biopsy and consists of four pink-perales soft tissue biopsy fragments measuring from 0.2 to 0.5 cm in greatest dimension. Entirely submitted as A. Specimen B is received in formalin labeled with the patient identifiers and distal esophagus biopsy and consists of four angel-white soft tissue biopsy fragments measuring from 0.1 to 0.5 cm in greatest dimension. Entirely submitted as B. (SEH:adj) Electronically Signed by: Janessa Patricia M.D.
[2017-03-11] MEDS: 0.9 % SODIUM CHLORIDE 10 ML SYRINGE IV SCH (05:26)
[2017-03-11 06:24] LABS: Prealbumin 10.5 mg/dl (20-40)
--- NOTE | 2017-03-11 07:25 | Discharge Summary ---
Medical - DS: Prov Patient information: Note initiated : 03/11/17 at 7:18 am Service Date, if different from initiated Date: [] Patient: Jannie Weston 62 y/o F admitted on 03/05/17 for Weakness/Bowel Obstruction. Chief Complaint: [] Date of admission: 03/05/17 16:20 Discharge date: 03/11/17 Primary care physician: Mikal Meyer Consults: 03/10/17 10:14 Consult to Physician [CONS] Routine Comment: Consulting Provider: [facility] Reason For Exam: Physician to Consult Medical - DS: Meds - Discharge Medications Prescriptions: Ciprofloxacin HCl [Cipro] 500 mg PO BID #8 tablet Metoprolol Succinate [Toprol Xl] 100 mg PO DAILY #14 Pantoprazole [Protonix] 40 mg PO BIDAC #60 tablet Sucralfate [Carafate] 1 gm PO BID 30 Days Active and Home Medications: Home Medications omeprazole 20 mg capsule,delayed release 20 mg PO BID #180 cap 06/17/16 [Rx Confirmed 03/06/17 Last Taken 02/03/17] Metoprolol Succinate [Toprol Xl] 100 mg PO daily 08/14/16 [History Confirmed Last Taken 02/03/17] Wheelchair 1 each MC CONT #1 each 08/16/16 [Rx Confirmed 03/06/17 Last Taken Unknown] aspirin 81 mg tablet,delayed release 81 mg PO QDAY 11/06/16 [History Confirmed 03/06/17 Last Taken 02/03/17] furosemide 40 mg tablet 40 mg PO QDAY 11/06/16 [History Confirmed 03/06/17 Last Taken 02/03/17] meclizine 25 mg tablet 25 mg PO .Q HS PRN #30 tab 11/06/16 [Rx Confirmed Last Taken 02/03/17] potassium chloride ER 20 mEq tablet,extended release 20 meq PO QDAY 11/06/16 [ History Confirmed 03/06/17 Last Taken 02/03/17] atorvastatin 80 mg tablet 80 mg PO QDAY 30 Days 12/03/16 [Rx Confirmed 03/06/17 Last Taken 02/03/17] escitalopram 10 mg tablet 10 mg PO QDAY #30 tab 02/21/17 [Rx Confirmed 03/06/17 Last Taken 03/04/17 08:00] Medical - DS: Hosp Hospital course: Discharge diagnosis * Peptic ulcer disease with esophageal and pyloric ulcers evident on EGD- patient managed on oral PPI/Carafate. continue minimum 3 months PPI. Discharging to SNF. * Noncomplicated UTI-continue antibiotic coverage for additional 4 days * Severe protein calorie malnutrition with cachexia-initially managed on TPN. Continue high-protein calorie supplements/dietary consult at SNF * Multiple electrolyte abnormalities- clinically resolved with aggressive replacement * Anion gap acidosis secondary to starvation ketosis-resolved * FANNY improved-creatinine down from 1.1 ->0.6 * history of CAD restart metoprolol, statin/aspirin BRIEF HOSPITAL COURSE 03/05- atient admitted with severe cachexia bowel obstruction. Esophageal mass on CT. EGD scheduled. Surgery consulted.NG tube placed. Patient nothing by mouth. Place PICC line and start TPN. Severe volume depletion and Acidosis secondary to starvation ketosis. 03/06- no overnight events. NG tube no significant output. Improving and anion gap from 31-17. hemoglobin 9.4. EGD in 24 hours. PICC line being placed. Start TPN. no family at bedside. No fever chills nausea vomiting. 03/07- patient lethargic and somnolent. No overnight events. Hemoglobin down to 9.1. Potassium 2.8 phosphorus 1.5. Start aggressive IV replacement. Continue TPN. EGD today. Family at bedside. No fever chills nausea vomiting. Minimal NG output 03/08- Patient status post EGD. Doing well. multiple ulcers pylorus/esophagus. On IV PPI. Advancing to a liquid diet. Start Carafate. Continue electrolyte supplements/ TPN. start physical therapy. Possible discharge in 24 hours if able to tolerate oral diet. Replace potassium and magnesium and phosphorus 03/09-patient tolerating diet. Feeling a lot better. transition to oral PPI. possible discharge in 24 hours. Continue dietary supplements per dietitian. Hemoglobin stable at 9.2. electrolytes level normalized. potassium 3.8 phosphorus of 3 magnesium at 2 adequate replacement. continue physical therapy. Possible discharge in 24 hours 03/10- patient doing well. Sitting up in chair. Intermittent confusion however improving nutritional status. Tolerating diet. Continue PPI/Carafate. urine with significant leukocytes. Start antibiotic coverage. Transfer to medical floor. Case discussed with patient's and the need for SNF transfer in light of significant deconditioning and requirement of PT OT and podiatry consults. Patient agreeable to transfer to care Center. Case management to coordinate same. no overnight fever chills nausea vomiting or concerns per staff other than intermittent confusion. 03/11- patient doing well. No overnight events. no fever chills nausea vomiting or concerns per staff. Ongoing physical therapy. Able to transfer out of bed to chair. improved appetite. continue Carafate/PPI/diet intervention and aggressive physical therapy at SNF. Detailed discharge instructions as below Discharge diagnosis: . - Time Spent with Patient Total time spent providing and/or coordinating discharge services: Greater than 30 minutes Medical - DS: Exam - Constitutional Vitals: Vital Signs Temp Pulse Resp BP BP Pulse Ox 03/11/17 04:00 98.2 F 90 20 114/79 97 03/10/17 23:51 98.4 F 87 20 104/67 100 03/10/17 19:20 98.4 F 86 20 107/73 99 03/10/17 15:28 98.1 F 18 100/67 98 03/10/17 12:00 97.7 F 16 92/61 100 Intake and Output 03/10/17 03/11/17 03/11/17 21:59 05:59 13:59 Intake Total 800 / 800 360 / 360 240 / 240 Output Total 875 / 875 325 / 325 375 / 375 Balance -75 / -75 35 / 35 -135 / -135 Intake: IV 50 / 50 Rocephin 2 gm In Dextrose 50 / 50 5% in Water 50 ml @ 100 mls/hr IV Q24H [facility] Rx#: [id number] Oral 750 / 750 360 / 360 240 / 240 Output: Void Amount 875 / 875 325 / 325 375 / 375 Other: Meal Dinner Percent of Meal Consumed 25% Feeding Ability Total Assistance # Voids 1 Weight 109 lb Medical - DS: Data Labs on day of discharge: Labs from last 24 hours 03/11/17 03/10/17 03/10/17 04:30 10:09 07:21 WBC 7.2 RBC 2.87 L Hgb 9.3 L Hct 28.0 L MCV 97.6 MCH 32.5 MCHC 33.3 RDW 16.1 H Plt Count 215 MPV 9.4 Gran % 72.6 Lymph % (Auto) 11.1 L Morton % (Auto) 14.0 H Eos % (Auto) 1.8 Baso % (Auto) 0.5 Gran # 5.3 Lymph # 0.8 L Morton # 1.0 H Eos # 0.1 Baso # 0 Total Counted Sodium Potassium Chloride Carbon Dioxide Anion Gap BUN Creatinine GFR Calculation Glucose Uric Acid Calcium Phosphorus Magnesium Total Bilirubin Direct Bilirubin GGT AST ALT Alkaline Phosphatase Lactate Dehydrogenase Total Protein Albumin Globulin Albumin/Globulin Ratio Prealbumin 10.5 L Triglycerides Urine Color Yellow Urine Appearance Turbid Urine pH 5.0 Ur Specific Sterling 1.008 Urine Protein 100 A Urine Glucose (UA) Negative Urine Ketones Neg Urine Occult Blood >=1.0 A Urine Nitrate Neg Urine Bilirubin Neg Urine Urobilinogen Neg Ur Leukocyte Esterase 500 A Urine RBC > 182 H Urine WBC > 182 H Ur Squamous Epith Cells 1 Urine Bacteria 0 Hyaline Casts 9 H Ur Culture Indicated? Yes 03/10/17 03/10/17 05:30 03:30 WBC RBC Hgb Hct MCV MCH MCHC RDW Plt Count MPV Gran % Lymph % (Auto) Morton % (Auto) Eos % (Auto) Baso % (Auto) Gran # Lymph # Morton # Eos # Baso # Total Counted Not Reportable Sodium 142 Potassium 5.1 Chloride 107 Carbon Dioxide 23 Anion Gap 12.0 BUN 13 Creatinine 0.7 GFR Calculation 92 Glucose 108 H Uric Acid 3.1 Calcium 8.4 L Phosphorus 3.3 Magnesium 2.3 Total Bilirubin 0.2 Direct Bilirubin < 0.2 GGT 49 H AST 34 ALT 23 Alkaline Phosphatase 82 Lactate Dehydrogenase 216 Total Protein 4.5 L Albumin 2.6 L Globulin 1.9 L Albumin/Globulin Ratio 1.4 Prealbumin 8.9 L Triglycerides 233 H Urine Color Urine Appearance Urine pH Ur Specific Sterling Urine Protein Urine Glucose (UA) Urine Ketones Urine Occult Blood Urine Nitrate Urine Bilirubin Urine Urobilinogen Ur Leukocyte Esterase Urine RBC Urine WBC Ur Squamous Epith Cells Urine Bacteria Hyaline Casts Ur Culture Indicated? Medical - DS: A/P - Patient/Caregiver Discharge Instructions Activity: as per physical therapy Diet: Regular Diet Additional Instructions: Follow-up PCP in 5 days continue PPI/Carafate as advised I recommend SNF physician to check CBC BMP UA as a posthospital follow-up and Chest x-ray in 1 week. Antibiotics for additional 4 days oral ciprofloxacin Continue aggressive bowel regimen to prevent constipation Continue fall precautions Continue aggressive PT OT at [facility] on chair sitting upright at 90 degrees to prevent aspiration Return to ER if worsening fever chills shortness of breath, diarrhea, bleeding Review risk and side effect profile of medications including antibiotics. Side effect may include mild to severe reaction including rash, diarrhea, cdiff and even which can be prevented by close follow-up with PCP and monitoring for side effects Continue diet as per dietitian with high-protein calorie supplements and activity as advised Discussed importance of medication adherence Please review medication list with patient prior to discharge Please schedule follow-up with PCP/Providers prior to discharge and provide printouts Portions of this chart may have been created with [employer] voice recognition software. Occasional wrong-word or ?sound-like? substitutions may have occurred due to the inherent limitations of voice recognition software. Please read the chart carefully and recognize, using context, where the substitutions have occurred. CC- PCP Prescriptions: Ciprofloxacin HCl [Cipro] 500 mg PO BID #8 tablet Metoprolol Succinate [Toprol Xl] 100 mg PO DAILY #14 Pantoprazole [Protonix] 40 mg PO BIDAC #60 tablet Sucralfate [Carafate] 1 gm PO BID 30 Days - Follow up Plan Follow up with: Daniel Shafer MD [Physician] - Lalita Oakes MD [Physician] - Mikal Meyer MD [Primary Care Provider] - Disposition: Xfer SNF Prognosis: Fair Rehab Potential: Fair I certify that the patient requires SNF services: Yes Overall status at discharge: patient is progressing back to baseline Medical - DS: Qual - VTE Deep Vein Thrombosis/Pulmonary Embolism Present on Admission: No
[2017-03-11] MEDS: PANTOPRAZOLE 40 MG TABLET PO SCH (07:46)
[2017-03-11] MEDS ORDERED: [UNRECOGNIZED DRUG - REMARK] IV SCH (08:00)
[2017-03-11] MEDS ORDERED: ASPIRIN 81 MG TAB.CHEW PO SCH (09:00)
[2017-03-11] MEDS ORDERED: ESCITALOPRAM 10 MG TABLET PO SCH (09:00)
[2017-03-11] MEDS ORDERED: ATORVASTATIN 20 MG TABLET PO SCH (09:00)
[2017-03-11] MEDS ORDERED: METOPROLOL SUCCINATE 50 MG TAB.XL.24H PO SCH ×2 (09:00→09:28)
[2017-03-11] MEDS: HEPARIN 5,000 UNIT/ML VIAL SQ SCH (09:11)
[2017-03-11] MEDS: POTASSIUM CHLORIDE 20 MEQ/15 ML ML PT SCH (09:13)
[2017-03-11] MEDS: cefTRIAXone 2 GM in DEXTROSE 5% IN WATER 50 ML IV SCH (09:30)
== END 2017-03-11 11:05 | DRG 380 ==
LOC: ED 11:47 → ICU 16:20 → MEDSUR 03-10 12:04
PROVIDERS: ADMIT Internal Medicine; ATTEND Internal Medicine